=== PATIENT | female | born 1935 | race Caucasian/White ===

== ENCOUNTER 2019-01-13 09:27 | Inpatient (IN) | payer OTHER, MEDICAID ==
[~2019-01-13] VITALS: Ht 152.4 cm; Wt 70.0 kg
[2019-01-13 09:32] VITALS: Ht 152.4 cm; Wt 70.0 kg
[2019-01-13] MEDS ORDERED: SOD CHLORIDE 0.9% 1,000 ML IV STA (09:56)
[2019-01-13] MEDS ORDERED: CIPROFLOXACIN 400MG/D5W 200 ML IVPB ONE (11:30)
[2019-01-13] MEDS ORDERED: CEFTRIAXONE 1 GM/50 ML (PMX) 50 ML IVPB ONE (11:30)
[2019-01-13] MEDS ORDERED: FER325 PO (11:58)
[2019-01-13] MEDS ORDERED: TURM500C9 PO (11:58)
[2019-01-13] MEDS ORDERED: MAXZ25 PO (11:58)
[2019-01-13] MEDS ORDERED: AMLO5TAB4 PO (11:59)
[2019-01-13] MEDS ORDERED: PIOG45TA9 PO (11:59)
[2019-01-13] MEDS ORDERED: LINA1TAB PO (12:00)
[2019-01-13] MEDS ORDERED: ALEN70TA5 PO (12:00)
[2019-01-13] MEDS ORDERED: HYDR-4011 PO (12:01)
[2019-01-13] MEDS ORDERED: CALC-133 PO (12:02)
[2019-01-13] MEDS ORDERED: SODI1TAB2 PO (12:03)
[2019-01-13] MEDS ORDERED: DOCU100T PO (12:04)
[2019-01-13] MEDS ORDERED: MELO15TA30 PO (12:04)
[2019-01-13] MEDS ORDERED: HYDR28.39 RC (12:05)
[2019-01-13] MEDS ORDERED: CALC-634 PO (12:06)
--- NOTE | 2019-01-13 12:17 | ERD ---
ER Documentation Chief Complaint Chief Complaint vomiting last night, weak, slow to respond HPI 83-year-old female who presents to the emergency room with generalized weakness. History is mostly provided by the daughter. The patient over the past 24 hours has had generalized weakness. The patient had one episode of nonbloody non bilious emesis. No falls or injuries. The patient has been slower to respond, incontinent of urine. She also has bilateral lower extremity weakness that is worsening. She has known lumbar compression fractures without any evidence of new injury or falls. ROS All systems reviewed and are negative except as per history of present illness. Medications Home Meds Reported Medications Calcium Carbonate/Vitamin D3 (OYSTERCAL-D 500 MG-400 UNIT TB) 1 Each Tablet, 1 EACH PO BID, TAB 01/13/19 Hydrocortisone (PROCTOSOL-HC) 28.35 Gm Cream..g., 28.35 GM RC PRN PRN for HEMORRHOID/EPISIOTMY PAIN 01/13/19 Docusate Sodium* (Dok*) 100 Mg Tablet, 100 MG PO DAILY, #30 CAP 01/13/19 Meloxicam* (Mobic*) 15 Mg Tablet, 15 MG PO DAILY, #30 TAB 01/13/19 Sodium Chloride* (Sodium Chloride*) 1 Gm Tablet, 1 GM PO DAILY, TAB 01/13/19 Hydrocodone/Acetaminophen ([place] 5-325 Tablet) 1 Each Tablet, 1 EACH PO BID PRN for PAIN, TAB 01/13/19 Alendronate Sodium* (Fosamax*) 70 Mg Tablet, 70 MG PO EVERY MONDAY, #4 TAB 01/13/19 Linagliptin-Metformin (Jentadueto) 2.5-500 Mg Tablet, 1 TAB PO BID, TAB 01/13/19 Amlodipine Besylate* (Norvasc*) 5 Mg Tablet, 5 MG PO DAILY, TAB 01/13/19 Pioglitazone Hcl* (Actos*) 45 Mg Tablet, 45 MG PO DAILY, #30 TAB 01/13/19 Ferrous Sulfate* (Ferrous Sulfate*) 325 Mg Tabec, 325 MG PO DAILY, TAB 01/13/19 Triamterene/Hctz* (Maxzide (37.5-25)*) 1 Each Tablet, 1 EACH PO DAILY, #30 TAB 01/13/19 Turmeric Root Extract (Turmeric) 500 Mg Capsule, 500 MG PO DAILY, CAP 01/13/19 Discontinued Reported Medications Calcium Carbonate/Vitamin D3 (Oyster Shell Calcium +D Tablet) 1 Each Tablet, 1 EACH PO BID, TAB 01/13/19 Allergies Allergies: Coded Allergies: Penicillins (Verified Allergy, Unknown, 01/13/19) PMhx/Soc Hx Cardiac Disorders: Yes (htn) Hx Psychiatric Problems: No Hx Miscellaneous Medical Probl: Yes (back pain ) Hx Alcohol Use: No Hx Substance Use: No Hx Tobacco Use: No Smoking Status: Never smoker FmHx Family History: No diabetes Physical Exam Vitals Vital Signs Date Temp Pulse Resp B/P (MAP) Pulse Ox O2 O2 Flow FiO2 Time Delivery Rate 01/13/19 71 17 138/53 100 Room Air 10:55 (81) 01/13/19 97.6 77 18 124/58 100 09:32 (80) Physical Exam General: Well developed, well nourished, no acute distress Head: Normocephalic, atraumatic. Eyes: Pupils equally reactive, EOM intact ENT: Slightly dry mucous membranes Neck: Supple, no lymphadenopathy Respiratory: Lungs clear bilaterally, no distress Cardiovascular: RRR, no murmurs, rubs, or gallops Abdominal: Soft, non-tender, non-distended, no peritoneal signs : Deferred MSK: Mild generalized weakness the bilateral lower extremities, limited exam Neurologic: Patient is alert and oriented to person and place, slightly slow to respond. no focal deficits though slightly weak to the bilateral lower extremities Skin: No rash Psych: Normal mood Result Diagram: 01/13/19 1004 01/13/19 1004 Results 24 hrs Laboratory Tests Test 01/13/19 10:04 01/13/19 10:30 White Blood Count 4.0 10^3/ul Red Blood Count 3.07 10^6/ul Hemoglobin 9.9 g/dl Hematocrit 28.5 % Mean Corpuscular Volume 92.8 fl Mean Corpuscular Hemoglobin 32.2 pg Mean Corpuscular Hemoglobin Concent 34.7 g/dl Red Cell Distribution Width 13.3 % Platelet Count 266 10^3/UL Mean Platelet Volume 8.7 fl Immature Granulocytes % 0.500 % Neutrophils % 60.6 % Lymphocytes % 31.0 % Monocytes % 7.1 % Eosinophils % 0.5 % Basophils % 0.3 % Nucleated Red Blood Cells % 0.0 /100WBC Immature Granulocytes # 0.020 10^3/ul Neutrophils # 2.4 10^3/ul Lymphocytes # 1.2 10^3/ul Monocytes # 0.3 10^3/ul Eosinophils # 0.0 10^3/ul Basophils # 0.0 10^3/ul Nucleated Red Blood Cells # 0.0 10^3/ul Prothrombin Time 11.7 Sec Prothrombin Time Ratio 0.9 INR International Normalized Ratio 0.85 Activated Partial Thromboplast Time 26.3 Sec Sodium Level 132 mmol/L Potassium Level 4.0 mmol/L Chloride Level 95 mmol/L Carbon Dioxide Level 27 mmol/L Anion Gap 10 Blood Urea Nitrogen 13 mg/dl Creatinine 0.69 mg/dl Est Glomerular Filtrat Rate mL/min mL/min Glucose Level 121 mg/dl Calcium Level 10.4 mg/dl Total Bilirubin 0.4 mg/dl Direct Bilirubin 0.00 mg/dl Indirect Bilirubin 0.4 mg/dl Aspartate Amino Transf (AST/SGOT) 22 IU/L Alanine Aminotransferase (ALT/SGPT) 15 IU/L Alkaline Phosphatase 42 IU/L Troponin I < 0.012 ng/ml Total Protein 7.6 g/dl Albumin 4.5 g/dl Globulin 3.10 g/dl Albumin/Globulin Ratio 1.45 Urine Color YELLOW Urine Clarity SLIGHTLY CLOUDY Urine pH 9.0 Urine Specific [place] 1.005 Urine Ketones NEGATIVE mg/dL Urine Nitrite POSITIVE mg/dL Urine Bilirubin NEGATIVE mg/dL Urine Urobilinogen NEGATIVE mg/dL Urine Leukocyte Esterase 3+ Veto/ul Urine Microscopic RBC 4 /HPF Urine Microscopic WBC 145 /HPF Urine Squamous Epithelial Cells FEW /HPF Urine Bacteria FEW /HPF Urine Hemoglobin NEGATIVE mg/dL Urine Glucose NEGATIVE mg/dL Urine Total Protein NEGATIVE mg/dl Current Medications Medications Dose Sig/So Start Time Status Last (Trade) Ordered Route PRN Stop Time Admin Dose Reason Admin Sodium 1,000 ml @ Q1H STAT 01/13/19 DC 01/13/19 Chloride 1,000 mls/hr IV 09:56 10:54 01/13/19 10:55 Ceftriaxone 50 ml @ ONCE ONCE 01/13/19 DC Sodium 100 mls/hr IVPB 11:30 01/13/19 11:30 200 ml @ ONCE ONCE 01/13/19 01/13/19 Ciprofloxacin 200 mls/hr IVPB 11:30 11:46 / Dextrose 01/13/19 12:29 Procedures/MDM EKG, MONITORS, & DIAGNOSTIC IMAGING: EKG: I reviewed and interpreted a 12-lead EKG. Rhythm: Normal sinus rhythm ST Changes: No contiguous ST segment elevations T waves: No contiguous T wave inversions Impression: No evidence of acute cardiac ischemia CXR IMPRESSION: No evidence for active cardiopulmonary disease. Bibasilar fibrotic scarring. CT brain: IMPRESSION: No mass, hemorrhage or evidence of acute transcortical infarct. Atrophy. White matter disease compatible with chronic small vessel ischemia. Chronic infarct right occipital and posterior inferior parietal lobe with cystic encephalomalacia. Tiny chronic lacunar infarct left basal ganglia. CT A/P IMPRESSION: No evidence of urolithiasis, diverticulitis or appendicitis. Mild to moderate left hydroureter nephrosis with transition in the upper pelvis. No stones seen. Question ureteral stricture versus reflux. Distended urinary bladder. Cholelithiasis. Vascular calcifications. Acute to subacute compression fractures L1 and L4 with retropulsion and compromise of the vertebral canal as above. LAB INTERPRETATION: I reviewed the laboratory testing and it shows urinary tract infection. MEDICAL DECISION MAKING: Patient presents with generalized weakness. Differential is broad but likely consistent with possible ischemic versus infectious process. A differential will be worked up with laboratory testing and diagnostic imaging. Patient does have worsening ambulation. This seems to be more systemic rather than focal deficit. Is bilateral and not likely consistent with acute stroke syndrome. ER COURSE: * Patient has urinary tract infection which would explain the patient's generalized weakness. The patient was given ceftriaxone. Urine culture has been sent. * Patient does not meet criteria for sepsis in the emergency room setting * The patient however also has subacute lumbar compression fractures. While I have a very low clinical concern pretest probability for cauda equina the patient's incontinence and lower extremity weakness needs to be ruled out. This is more likely expand by urinary tract infection no MRI imaging would be appropriate. I discussed the case with on-call diversity specialist, Dr. Ricks. He agrees with MRI imaging of the thoracolumbar spine and will consult on the case. CONSULTATION: Neurosurgeon Dr. Ricks notified via telephone DISPOSITION PLAN: Accepting care team and consultations: I discussed the current laboratory data, diagnostic imaging and emergency care provided. Admitting team: Dr. Bautista Admitting team indication: Insurance directed Departure Diagnosis: Primary Impression: Urinary tract infection Urinary tract infection type: acute cystitis Hematuria presence: without hematuria Qualified Codes: N30.00 - Acute cystitis without hematuria Additional Impressions: Generalized weakness Lumbar compression fracture Encounter type: initial encounter Lumbar vertebra fracture level: unspecified lumbar vertebra Qualified Codes: S32.000A - Wedge compression fracture of unspecified lumbar vertebra, initial encounter for closed frac ture Dehydration, mild Condition: Stable LIBBY MAN MD Jan 13, 2019 12:17
[2019-01-13] MEDS ORDERED: ACETAMINOPHEN 325 MG TAB PO PRN ×2 (12:30→13:30)
[2019-01-13] MEDS ORDERED: ONDANSETRON 4 MG INJ IV PRN ×2 (12:30→13:30)
--- NOTE | 2019-01-13 13:10 | HP ---
Date/Time of Note Date/Time of Note DATE: 01/13/19 TIME: 13:10 Assessment/Plan VTE Prophylaxis Pharmacological prophylaxis: NA/contraindicated Pharm contraindication: other Lines/Catheters IV Catheter Type (from [facility]): Saline [facility] Assessment/Plan Hospital Course 83-year-old female with comorbidities including hypertension, diabetes mellitus type 2, stroke, lumbar vertebral fracture, and left breast cancer who presented to the emergency room with chief complaint of bilateral lower extremity weakness and new onset confusion with evidence of underlying complicated urinary tract infection, who will be admitted to inpatient setting for further treatment and evaluation. 1. Suspect complicated urinary tract infection. Obtain urine cultures. Continue the patient on ciprofloxacin (patient allergic to penicillins). 2. Left-sided hydronephrosis. Questionable stricture versus reflux. Obtain urology consult. Bladder scan every 4-6 hours. 3. New-onset bilateral lower extremity weakness. Etiology unclear. MRI of the thoracic and lumbar spine ordered. Neurosurgery consult has been obtained. 4. Hypertension. Resume antihypertensives. 5. Diabetes mellitus type 2. Continue the patient on sliding scale insulin. Obtain hemoglobin A1c to evaluate the blood glucose control over the past few weeks. 6. Normocytic, normochromic anemia. Resume iron supplements. Plan: The patient will be admitted to inpatient floor. The patient will be kept n.p.o. except for medications.. The patient will be started on DVT prophylaxis. The patient will remain a full code. Activities will be bedrest. PT evaluation will be ordered. The rest of the patient's management will be based on the clinical course, inputs from consultants, and the results of diagnostic studies. Based on the patient's clinical presentation, she most probably requires at least 2 midnights' stay for further management and evaluation of her clinical presentation. The patient was seen in collaboration with Dr. Bautista. Result Diagram: 01/13/19 1004 01/13/19 1004 Results 24hrs Laboratory Tests Test 01/13/19 10:04 01/13/19 10:30 White Blood Count 4.0 L Red Blood Count 3.07 L Hemoglobin 9.9 L Hematocrit 28.5 L Mean Corpuscular Volume 92.8 Mean Corpuscular Hemoglobin 32.2 Mean Corpuscular Hemoglobin Concent 34.7 Red Cell Distribution Width 13.3 Platelet Count 266 Mean Platelet Volume 8.7 Immature Granulocytes % 0.500 H Neutrophils % 60.6 Lymphocytes % 31.0 Monocytes % 7.1 Eosinophils % 0.5 Basophils % 0.3 Nucleated Red Blood Cells % 0.0 Immature Granulocytes # 0.020 Neutrophils # 2.4 Lymphocytes # 1.2 Monocytes # 0.3 Eosinophils # 0.0 Basophils # 0.0 Nucleated Red Blood Cells # 0.0 Prothrombin Time 11.7 L Prothrombin Time Ratio 0.9 INR International Normalized Ratio 0.85 Activated Partial Thromboplast Time 26.3 Sodium Level 132 L Potassium Level 4.0 Chloride Level 95 L Carbon Dioxide Level 27 Anion Gap 10 Blood Urea Nitrogen 13 Creatinine 0.69 Est Glomerular Filtrat Rate mL/min Glucose Level 121 Calcium Level 10.4 H Total Bilirubin 0.4 Direct Bilirubin 0.00 Indirect Bilirubin 0.4 Aspartate Amino Transf (AST/SGOT) 22 Alanine Aminotransferase (ALT/SGPT) 15 Alkaline Phosphatase 42 Troponin I < 0.012 Total Protein 7.6 Albumin 4.5 Globulin 3.10 Albumin/Globulin Ratio 1.45 Urine Color YELLOW Urine Clarity SLIGHTLY CLOUDY A Urine pH 9.0 Urine Specific [place] 1.005 Urine Ketones NEGATIVE Urine Nitrite POSITIVE A Urine Bilirubin NEGATIVE Urine Urobilinogen NEGATIVE Urine Leukocyte Esterase 3+ H Urine Microscopic RBC 4 Urine Microscopic WBC 145 H Urine Squamous Epithelial Cells FEW Urine Bacteria FEW A Urine Hemoglobin NEGATIVE Urine Glucose NEGATIVE Urine Total Protein NEGATIVE HPI/ROS Admit Date/Time Admit Date/Time Hx of Present Illness This is an 83-year-old female with a past medical history of hypertension, diabetes mellitus type 2, stroke, lumbar vertebral fracture, and left breast cancer status post resection, chemotherapy, and radiation. Patient stays at home with her daughter and is relatively independent. Since 01/12/2019, the patient started getting confused. The patient had new onset bilateral lower extremity weakness. She also had inability to hold her urine. The patient's daughter reported a fever and the patient received 1 dose of Tylenol at home. The patient started complaining of back pain and bilateral flank pain. The patient also had a few episodes of nonbilious, nonbloody vomiting. Therefore, the family brought the patient to the emergency room. In the ER, the patient was noticed to have positive urinalysis with positive nitrate and positive leukocyte esterase with urine microscopic WBC of 145. The patient underwent a CT scan of the abdomen and pelvis that was showing mild to moderate left hydroureteronephrosis with a transition in upper pelvis with a distended urinary bladder. The patient was afebrile. The patient was treated with IV fluids and IV ciprofloxacin in the ER. ROS Constitutional: disoriented Eyes: no complaints ENT: no complaints Respiratory: no complaints Cardiovascular: no complaints Gastrointestinal: pain, vomiting, other (Black stool (takes iron pills)) Genitourinary: flank pain, other (Urinary incontinence.) Musculoskeletal: back pain Skin: no complaints Neurologic: confusion, focal-weakness Endocrine: no complaints Lymphatic: no complaints Psychological: no complaints Additional Comments CT Abdomen and Pelvis IMPRESSION: No evidence of urolithiasis, diverticulitis or appendicitis. Mild to moderate left hydroureter nephrosis with transition in the upper pelvis. No stones seen. Question ureteral stricture versus reflux. Distended urinary bladder. Cholelithiasis. Vascular calcifications. Acute to subacute compression fractures L1 and L4 with retropulsion and compromise of the vertebral canal. PMH/Family/Social Past Medical History 1. Hypertension. 2. Diabetes mellitus type 2. 3. Left breast cancer status post surgical resection, chemotherapy, and radiation. 4. Lumbar vertebral fracture. 5. Stroke. Medications Current Medications Ondansetron HCl (Zofran Inj) 4 mg BRIDGE ORDER PRN IV NAUSEA/VOMITING; Start 01/13/19 at 12:30; Stop 01/14/19 at 12:29 Acetaminophen (Tylenol Tab) 650 mg ER BRIDGE PRN PO .MILD PAIN 1-3 OR TEMP; Start 01/13/19 at 12:30; Stop 01/14/19 at 12:29 Coded Allergies: Penicillins (Verified Allergy, Unknown, 01/13/19) Past Surgical History Left breast surgery for removal of tumor. Family History Significant Family History: cancer, diabetes Social History Lives at home with family. Uses a walker for ambulation. Alcohol Use: none Smoking Status: Never smoker Drug Use: none Exam/Review of Systems Vital Signs Vitals Vital Signs Date Temp Pulse Resp B/P (MAP) Pulse Ox O2 O2 Flow FiO2 Time Delivery Rate 01/13/19 71 17 138/53 100 Room Air 10:55 (81) 01/13/19 97.6 09:32 Exam Exam General: Adequately build 83 year-old female lying in bed in no apparent distress. HEENT: Normocephalic, atraumatic. Eyes: Anicteric sclerae, conjunctivae clear. ENT: Nasal septum midline, oral mucosa is dry. Neck supple. Respiratory: Bilaterally diminished breath sounds. No use of accessory muscles of respiration. No adventitious breath sounds. Cardiovascular: S1, S2 heard. Regular rate and rhythm. Abdomen: Soft, nontender, and nondistended. Bowel sounds positive in all 4 quadrants. Genitourinary: Deferred. Extremities: No cyanosis, no clubbing, no edema. Peripheral pulses palpable. Neurologic: The patient is awake and alert. B/L LE weak when compared to the upper extremities. Skin: Normal skin turgor. No skin rashes. Additional Comments Brain CT IMPRESSION: No mass, hemorrhage or evidence of acute transcortical infarct. Atrophy. White matter disease compatible with chronic small vessel ischemia. Chronic infarct right occipital and posterior inferior parietal lobe with cystic encephalomalacia. Tiny chronic lacunar infarct left basal ganglia. CT Abdomen and Pelvis IMPRESSION: No evidence of urolithiasis, diverticulitis or appendicitis. Mild to moderate left hydroureter nephrosis with transition in the upper pelvis. No stones seen. Question ureteral stricture versus reflux. Distended urinary bladder. Cholelithiasis. Vascular calcifications. Acute to subacute compression fractures L1 and L4 with retropulsion and compromise of the vertebral canal. ADAM BLANCO NP Jan 13, 2019 13:10
[2019-01-13] MEDS ORDERED: SOD CHLORIDE 0.9% 1,000 ML IV SCH (13:26)
[2019-01-13] MEDS ORDERED: NACL 0.9% 3 ML SYG IV SCH (13:30)
[2019-01-13] MEDS ORDERED: HYDROCODONE/APAP (5/325) TAB PO PRN (13:30)
[2019-01-13] MEDS ORDERED: INSULIN ASPART [NOVOLOG] 3 ML PEN SC SCH (14:00)
[2019-01-13] MEDS ORDERED: GLUCOSE GEL 15 GRAM TUBE BUCCAL PRN (14:30)
[2019-01-13] MEDS ORDERED: GLUCOSE GEL 15 GRAM TUBE PO PRN ×2 (14:30)
[2019-01-13] MEDS ORDERED: DEXTROSE 50% 50 ML SYRINGE IV PRN ×2 (14:30)
[2019-01-13] MEDS ORDERED: GLUCAGON 1 MG INJ IM PRN (14:30)
[2019-01-13 16:37] VITALS: BP 158/72; PULSE 74; RESP 17
[2019-01-13] MEDS: Insulin NOVOLOG SS MILD Algorithm (NPO/TPN/ENTERAL FEEDS) SC SCH ×2 (17:00→20:45)
--- NOTE | 2019-01-13 19:29 | CONS ---
Assessment/Plan Assessment/Plan Hospital Course (Demo Recall) 83-year-old female presented to the emergency room with a history of weakness in both lower extremities and the patient was getting confused at home the past 2 days. Patient lives at home with her daughter and has been recently seeing her medical doctor for back pain and she was told that she does have osteoporosis and lumbar fracture which according to her daughter has been healing. However the patient was having more weakness in her lower extremities and also having more back pain and urinary incontinence. She has been wearing a diaper and according to her daughters when she is nervous she tries to hold her urine. Upon admission the patient underwent a CT scan of the abdomen and pelvis and that showed: No evidence of urolithiasis, diverticulitis or appendicitis. Mild to moderate left hydroureter nephrosis with transition in the upper pelvis. No stones seen. Question ureteral stricture versus reflux. Distended urinary bladder. Cholelithiasis. Vascular calcifications. Acute to subacute compression fractures L1 and L4 with retropulsion and compromise of the vertebral canal as above. Patient also had an MRI of the lumbar and thoracic spine and these did show: MRI of the lumbosacral spine: 1. The L1 compression fracture shows a signal pattern suggesting acute pathology with bone retropulsion causing severe central canal stenosis and impingement upon the proximal cauda equina at the junction with the conus, findings likely correlate with the provided clinical history. 2. The L4 compression deformity is chronic in signal pattern with mild bone retropulsion causing moderate central canal stenosis at the level of the superior endplate. 3. Severe acquired central canal stenosis at L4-5 caused by osteophyte and disc complex, facet arthropathy and ligamentum flavum hypertrophy. 4. Mild L5-S1 central canal stenosis caused by osteophyte and disc complex, facet arthropathy and ligamentum flavum hypertrophy. MRI of the thoracic spine: 1. The thoracic spinal cord signal is within normal limits and there is no significant central canal stenosis at any thoracic level. 2. There is degenerative disc narrowing with osteophyte and disc complexes at multiple thoracic levels as discussed above without significant central canal or foraminal compromise, no cord compression at the thoracic levels is present After her admission the patient was not urinating and the nurse did the bladder scan on her and that showed over 999 mL. I saw the patient around the same time and indeed her bladder was distended up to the umbilicus but yet the patient was not in severe pain. I did proceed and inserted a Mena catheter for her and over 2300 mL of urine drained out. The urine was clear. Impression: Urinary retention and atonic bladder most likely related to her back problems and also diabetes. Plan: Keep the Mena catheter overnight and discontinue it in the morning and do in and out cath on her every 6 hours. And also we will teach her daughter to do straight cath for her at home every 12 hours. The daughter is willing to do that and wants to learn how to do it. As far as her back would recommend to have orthopedic or neurosurgery consultation. The patient also looks jaundiced but her bilirubin is normal. Consider GI consultation. Consultation Date/Type/Reason Admit Date/Time January 13, 2019 Date of Consultation: Jan 13, 2019 Type of Consult Urology Reason for Consultation Urinary retention Requesting Provider: DREA OSBORNE MD Date/Time of Note DATE: 01/13/19 TIME: 19:08 Hx of Present Illness 83-year-old female presented to the emergency room with a history of weakness in both lower extremities and the patient was getting confused at home the past 2 days. Patient lives at home with her daughter and has been recently seeing her medical doctor for back pain and she was told that she does have osteoporosis and lumbar fracture which according to her daughter has been healing. However the patient was having more weakness in her lower extremities and also having more back pain and urinary incontinence. She has been wearing a diaper and according to her daughters when she is nervous she tries to hold her urine. Upon admission the patient underwent a CT scan of the abdomen and pelvis and that showed: No evidence of urolithiasis, diverticulitis or appendicitis. Mild to moderate left hydroureter nephrosis with transition in the upper pelvis. No stones seen. Question ureteral stricture versus reflux. Distended urinary bladder. Cholelithiasis. Vascular calcifications. Acute to subacute compression fractures L1 and L4 with retropulsion and compromise of the vertebral canal as above. After her admission the patient was not urinating and the nurse did the bladder scan on her and that showed over 999 mL. I saw the patient around the same time and indeed her bladder was distended up to the umbilicus but yet the patient was not in severe pain. I did proceed and inserted a Mena catheter for her and over 2300 mL of urine drained out. The urine was clear. Constitutional: no complaints Eyes: no complaints, other ENT: no complaints Respiratory: No shortness of breath Cardiovascular: No chest pain Gastrointestinal: nausea, vomiting (At the time of admission) Genitourinary: other (At home she does wear a diaper [id number] but she does go to the bathroom and it seems she does have mostly incontinence especially when she stands up which indicates overflow incontinence.) Musculoskeletal: back pain, other (Weakness in both lower extremities) Skin: no complaints Neurologic: focal-weakness (Lower extremities), other (History of stroke 20 years ago) Endocrine: other (History of diabetes) Additional Comments Patient does have a history of breast cancer Past Medical History Medical History: cancer (Left breast), diabetes, hypertension, other (Osteoporosis) Home Meds Reported Medications Calcium Carbonate/Vitamin D3 (OYSTERCAL-D 500 MG-400 UNIT TB) 1 Each Tablet, 1 EACH PO BID, TAB 01/13/19 Hydrocortisone (PROCTOSOL-HC) 28.35 Gm Cream..g., 28.35 GM RC PRN PRN for HEMORRHOID/EPISIOTMY PAIN 01/13/19 Docusate Sodium* (Dok*) 100 Mg Tablet, 100 MG PO DAILY, #30 CAP 01/13/19 Meloxicam* (Mobic*) 15 Mg Tablet, 15 MG PO DAILY, #30 TAB 01/13/19 Sodium Chloride* (Sodium Chloride*) 1 Gm Tablet, 1 GM PO DAILY, TAB 01/13/19 Hydrocodone/Acetaminophen ([place] 5-325 Tablet) 1 Each Tablet, 1 EACH PO BID PRN for PAIN, TAB 01/13/19 Alendronate Sodium* (Fosamax*) 70 Mg Tablet, 70 MG PO EVERY MONDAY, #4 TAB 01/13/19 Linagliptin-Metformin (Jentadueto) 2.5-500 Mg Tablet, 1 TAB PO BID, TAB 01/13/19 Amlodipine Besylate* (Norvasc*) 5 Mg Tablet, 5 MG PO DAILY, TAB 01/13/19 Pioglitazone Hcl* (Actos*) 45 Mg Tablet, 45 MG PO DAILY, #30 TAB 01/13/19 Ferrous Sulfate* (Ferrous Sulfate*) 325 Mg Tabec, 325 MG PO DAILY, TAB 01/13/19 Triamterene/Hctz* (Maxzide (37.5-25)*) 1 Each Tablet, 1 EACH PO DAILY, #30 TAB 01/13/19 Turmeric Root Extract (Turmeric) 500 Mg Capsule, 500 MG PO DAILY, CAP 01/13/19 Discontinued Reported Medications Calcium Carbonate/Vitamin D3 (Oyster Shell Calcium +D Tablet) 1 Each Tablet, 1 EACH PO BID, TAB 01/13/19 Medications Current Medications Ondansetron HCl (Zofran Inj) 4 mg BRIDGE ORDER PRN IV NAUSEA/VOMITING; Start 01/13/19 at 12:30; Stop 01/14/19 at 12:29 Acetaminophen (Tylenol Tab) 650 mg ER BRIDGE PRN PO .MILD PAIN 1-3 OR TEMP; Start 01/13/19 at 12:30; Stop 01/14/19 at 12:29 Sodium Chloride 1,000 ml @ 100 mls/hr Q10H IV Last administered on 01/13/19at 17:59; Admin Dose 100 MLS/HR; Start 01/13/19 at 13:26; Stop 01/13/19 at 23:25 IV Flush (NS 3 ml) 3 ml PER PROTOCOL IV ; Start 01/13/19 at 13:30 Ondansetron HCl (Zofran Inj) 4 mg Q6H PRN IV NAUSEA/VOMITING; Start 01/13/19 at 13:30 Acetaminophen (Tylenol Tab) 650 mg Q6H PRN PO .PAIN 1-3 OR TEMP; Start 01/13/19 at 13:30 Acetaminophen/ Hydrocodone Bitart ([place] (5/325)) 1 tab Q6H PRN PO .MOD PAIN 4- 6; Start 01/13/19 at 13:30 Ciprofloxacin/ Dextrose 200 ml @ 200 mls/hr Q12 IVPB ; Start 01/13/19 at 21:00 Amlodipine Besylate (Norvasc) 5 mg DAILY PO ; Start 01/14/19 at 09:00 Ferrous Sulfate (Ferrous Sulfate (Ec)) 325 mg DAILY PO ; Start 01/14/19 at 09:00 Insulin Aspart (Novolog Insulin Pen) (Adult SC Insulin - Mild Algorithm)... Q4 SC ; Start 01/13/19 at 17:00 Miscellaneous Information 1 ea NOTE XX ; Start 01/13/19 at 14:30 Glucose (Glutose) 15 gm Q15M PRN PO DECREASED GLUCOSE; Start 01/13/19 at 14:30 Glucose (Glutose) 22.5 gm Q15M PRN PO DECREASED GLUCOSE; Start 01/13/19 at 14:30 Dextrose (D50w Syringe) 25 ml Q15M PRN IV DECREASED GLUCOSE; Start 01/13/19 at 14:30 Dextrose (D50w Syringe) 50 ml Q15M PRN IV DECREASED GLUCOSE; Start 01/13/19 at 14:30 Glucagon (Glucagen) 1 mg Q15M PRN IM DECREASED GLUCOSE; Start 01/13/19 at 14:30 Glucose (Glutose) 15 gm Q15M PRN BUCCAL DECREASED GLUCOSE; Start 01/13/19 at 1 4:30 Allergies: Coded Allergies: Penicillins (Verified Allergy, Unknown, 01/13/19) Past Surgical History Past Surgical Hx: other (Left breast surgery and chemoradiation, umbilical hernia repair) Social History Alcohol Use: none Smoking Status: Never smoker Drug Use: none Other Social History She is a 5, para 5, all normal delivery Exam/Review of Systems Exam Vitals Vital Signs Date Temp Pulse Resp B/P (MAP) Pulse Ox O2 O2 Flow FiO2 Time Delivery Rate 01/13/19 98.4 74 17 158/72 99 Room Air 16:37 (100) Constitutional: alert Psych: no complaints Head: normocephalic Eyes: icteric ENMT: nl external ears & nose Neck: supple, non-tender Respiratory: normal air movement; No wheezing Cardiovascular: No jugular venous distention (JVD) Gastrointestinal: soft, tender (In the suprapubic area) Genitourinary - Female: other (Atrophic vaginitis and distended urinary bladder.) Musculoskeletal: muscle weakness (Lower extremities) Extremities: No calf tenderness Neurological: focal weakness (Lower extremities) Skin: nl turgor Results Result Diagram: 01/13/19 1004 01/13/19 1004 Results 24hrs Laboratory Tests Test 01/13/19 10:04 01/13/19 10:30 01/13/19 17:58 White Blood Count 4.0 L Red Blood Count 3.07 L Hemoglobin 9.9 L Hematocrit 28.5 L Mean Corpuscular Volume 92.8 Mean Corpuscular Hemoglobin 32.2 Mean Corpuscular 34.7 Hemoglobin Concent Red Cell Distribution Width 13.3 Platelet Count 266 Mean Platelet Volume 8.7 Immature Granulocytes % 0.500 H Neutrophils % 60.6 Lymphocytes % 31.0 Monocytes % 7.1 Eosinophils % 0.5 Basophils % 0.3 Nucleated Red Blood Cells % 0.0 Immature Granulocytes # 0.020 Neutrophils # 2.4 Lymphocytes # 1.2 Monocytes # 0.3 Eosinophils # 0.0 Basophils # 0.0 Nucleated Red Blood Cells # 0.0 Prothrombin Time 11.7 L Prothrombin Time Ratio 0.9 INR International 0.85 Normalized Ratio Activated Partial Thromboplast 26.3 Time Sodium Level 132 L Potassium Level 4.0 Chloride Level 95 L Carbon Dioxide Level 27 Anion Gap 10 Blood Urea Nitrogen 13 Creatinine 0.69 Est Glomerular Filtrat Rate mL/min Glucose Level 121 Hemoglobin A1c 5.2 Calcium Level 10.4 H Total Bilirubin 0.4 Direct Bilirubin 0.00 Indirect Bilirubin 0.4 Aspartate Amino 22 Transf (AST/SGOT) Alanine 15 Aminotransferase (ALT/SGPT) Alkaline Phosphatase 42 Troponin I < 0.012 Total Protein 7.6 Albumin 4.5 Globulin 3.10 Albumin/Globulin Ratio 1.45 Thyroid Stimulating 4.650 Hormone (TSH) Free Thyroxine 1.38 Urine Color YELLOW Urine Clarity SLIGHTLY CLOUDY A Urine pH 9.0 Urine Specific [place] 1.005 Urine Ketones NEGATIVE Urine Nitrite POSITIVE A Urine Bilirubin NEGATIVE Urine Urobilinogen NEGATIVE Urine Leukocyte Esterase 3+ H Urine Microscopic RBC 4 Urine Microscopic WBC 145 H Urine Squamous FEW Epithelial Cells Urine Bacteria FEW A Urine Hemoglobin NEGATIVE Urine Glucose NEGATIVE Urine Total Protein NEGATIVE Bedside Glucose [address] scan of the abdomen and pelvis: No evidence of urolithiasis, diverticulitis or appendicitis. Mild to moderate left hydroureter nephrosis with transition in the upper pelvis. No stones seen. Question ureteral stricture versus reflux. Distended urinary bladder. Cholelithiasis. Vascular calcifications. Acute to subacute compression fractures L1 and L4 with retropulsion and compromise of the vertebral canal as above MRI of the lumbosacral spine: 1. The L1 compression fracture shows a signal pattern suggesting acute pathology with bone retropulsion causing severe central canal stenosis and impingement upon the proximal cauda equina at the junction with the conus, findings likely correlate with the provided clinical history. 2. The L4 compression deformity is chronic in signal pattern with mild bone retropulsion causing moderate central canal stenosis at the level of the superior endplate. 3. Severe acquired central canal stenosis at L4-5 caused by osteophyte and disc complex, facet arthropathy and ligamentum flavum hypertrophy. 4. Mild L5-S1 central canal stenosis caused by osteophyte and disc complex, facet arthropathy and ligamentum flavum hypertrophy. MRI of the thoracic spine: 1. The thoracic spinal cord signal is within normal limits and there is no significant central canal stenosis at any thoracic level. 2. There is degenerative disc narrowing with osteophyte and disc complexes at multiple thoracic levels as discussed above without significant central canal or foraminal compromise, no cord compression at the thoracic levels is present Medications Medication Current Medications Ondansetron HCl (Zofran Inj) 4 mg BRIDGE ORDER PRN IV NAUSEA/VOMITING; Start 01/13/19 at 12:30; Stop 01/14/19 at 12:29 Acetaminophen (Tylenol Tab) 650 mg ER BRIDGE PRN PO .MILD PAIN 1-3 OR TEMP; Start 01/13/19 at 12:30; Stop 01/14/19 at 12:29 Sodium Chloride 1,000 ml @ 100 mls/hr Q10H IV Last administered on 01/13/19at 17:59; Admin Dose 100 MLS/HR; Start 01/13/19 at 13:26; Stop 01/13/19 at 23:25 IV Flush (NS 3 ml) 3 ml PER PROTOCOL IV ; Start 01/13/19 at 13:30 Ondansetron HCl (Zofran Inj) 4 mg Q6H PRN IV NAUSEA/VOMITING; Start 01/13/19 at 13:30 Acetaminophen (Tylenol Tab) 650 mg Q6H PRN PO .PAIN 1-3 OR TEMP; Start 01/13/19 at 13:30 Acetaminophen/ Hydrocodone Bitart ([place] (5/325)) 1 tab Q6H PRN PO .MOD PAIN 4- 6; Start 01/13/19 at 13:30 Ciprofloxacin/ Dextrose 200 ml @ 200 mls/hr Q12 IVPB ; Start 01/13/19 at 21:00 Amlodipine Besylate (Norvasc) 5 mg DAILY PO ; Start 01/14/19 at 09:00 Ferrous Sulfate (Ferrous Sulfate (Ec)) 325 mg DAILY PO ; Start 01/14/19 at 09:00 Insulin Aspart (Novolog Insulin Pen) (Adult SC Insulin - Mild Algorithm)... Q4 SC ; Start 01/13/19 at 17:00 Miscellaneous Information 1 ea NOTE XX ; Start 01/13/19 at 14:30 Glucose (Glutose) 15 gm Q15M PRN PO DECREASED GLUCOSE; Start 01/13/19 at 14:30 Glucose (Glutose) 22.5 gm Q15M PRN PO DECREASED GLUCOSE; Start 01/13/19 at 14:30 Dextrose (D50w Syringe) 25 ml Q15M PRN IV DECREASED GLUCOSE; Start 01/13/19 at 14:30 Dextrose (D50w Syringe) 50 ml Q15M PRN IV DECREASED GLUCOSE; Start 01/13/19 at 14:30 Glucagon (Glucagen) 1 mg Q15M PRN IM DECREASED GLUCOSE; Start 01/13/19 at 14:30 Glucose (Glutose) 15 gm Q15M PRN BUCCAL DECREASED GLUCOSE; Start 01/13/19 at 14:30 KI VELÁSQUEZ MD Jan 13, 2019 19:18
[2019-01-13 19:50] VITALS: BP 130/58; PULSE 75; RESP 18
[2019-01-13] MEDS: CIPROFLOXACIN 400MG/D5W 200 ML IVPB SCH (20:44)
--- NOTE | 2019-01-13 22:55 | CONS ---
Assessment/Plan Assessment/Plan Assessment/Plan (Daily) Date of consultation: 01/13/2019 Requesting physician: Dr. Smart with the emergency department Consulting service: Neurosurgery This is a 83-year-old female who was diagnosed with 2 spontaneous lumbar fractures 8 months ago and evaluated by a neurosurgeon at [facility]. Apparently, initially there were some discussions made about possible kyphoplasty but as the patient's daughters recall there was some issues with the equipment and the procedure was not done. The patient was instead put in a brace and transferred to a senior care facility. After further questioning, the daughters tell me that the patient has also had bilateral foot drops soon after the fractures were diagnosed. The patient had further follow-up with the same neurosurgeon in a clinic setting with the last clinic visit being last month and told to continue with conservative management. Since the fracture diagnosis, the patient has continued to deteriorate neurologically in a progressive fashion. She has been virtually nonambulatory for the past 2 months where she uses a wheelchair at times at home and at other times with maximum assistance, can take a few steps using a front wheel walker only. The patient has been using a diaper for at least the past 2 months due to multiple "accidents" where she wet herself. For the past 2 weeks, the patient has had multiple episodes where she has a sudden gush of urine that leaves her bladder. She can void spontaneously but with significant hesitation, slow rate of flow and difficulty. She does not feel that her bladder is full. During the last visit that took place last month with the other neurosurgeon, there were no discussions made about possible need for neurosurgical intervention. The patient was brought to [facility] emergency room today due to further progressive paraparesis and bladder incontinence by her 2 daughters. The patient has really been evaluated in urology and when a Mena catheter was put in, 2300 mL of urine was removed from the patient's very distended bladder according to her nurse with whom I just spoke. The patient has also been diagnosed with a UTI and hydronephrosis upon admission to the hospital. The patient's daughter tell me, that the patient has had recurrent UTIs. Ever since the diagnosis of the lumbar fractures, the patient has also had continued low back pain and takes various pain medications including Fisher on a when necessary basis. The physical therapy that she has gotten has not been helpful to her. Prior to the diagnosis of her lumbar fractures, the patient has been a functional and able to take care of her activities of daily living. The patient and her live with 1 of her daughters. However, since the diagnosis of the lumbar fractures the patient has become progressively more deconditioned. Over the past week or so, the patient has become somewhat somnolent and her level of consciousness has diminished for unknown reasons. It is unclear whether the patient has been taking any medications for treatment of osteoporosis. Past medical history: Breast cancer (diagnosed and treated over 10 years status post resection, chemotherapy and radiation), hypertension, diabetes, "stroke" over 10 years ago Allergies: Penicillin Review of systems: The patient and her family deny shortness of breath, chest pain, heartburn, diplopia, blurriness of the vision. Please see above for pertinent positives or negatives. Family history: Noncontributory Social history: Denies use of tobacco, EtOH, illicit or recreational drugs. Physical examination: This is a elderly female laying in bad somewhat somnolent. She appears to be comfortable. Her two daughters are at bedside. Patient is awake alert and oriented to person, the year and month and place. The patient is Citizen Of [place]-speaking only but I am able to communicate with her with the help of her 2 daughters. Her language is slow. Face is symmetric. Extraocular movements are grossly normal. Shoulder shrugs are symmetric. Muscle bulk is somewhat decreased bilateral upper and lower extremities. Muscle tone is increased bilateral lower extremities when compared to the upper extremities. Deep tendon reflexes are 1+ bilateral upper extremities and 2+ bilateral lower extremities. Sensory testing is difficult but the patient but she seems to have at least some sensation in bilateral lower extremities proximally and distally. There is at least some sensation to light touch present in the perineal area. Motor strength is 4+ out of 5 bilateral upper extremities proximally and distally. Motor strength bilateral lower extremities including hip flexion, knee flexion and extension and ankle plantar flexion are at least 3 out of 5. Bilateral ankle dorsiflexion is 2- out of 5. There is no Paulo sign present bilaterally. Cerebellar testing is difficult due to the patient being somnolent. Toe testing is equivocal. There is no ankle clonus. Straight leg raise more than 20 on either side causes axial low back pain. Rectal tone examination has been deferred per patient request. Gait testing can be done as the patient has been virtually nonambulatory for 2 months. CERVICAL SPINE: Examination of the cervical spine reveals no significant tenderness. CERVICAL SPINE ACTIVE RANGE OF MOTION: Patient ROM Normal ROM Cervical flexion: 30 50 Cervical extension: 40 60 Cervical lateral rotation to the left: 60 80 Cervical lateral rotation to the right: 60 80 THORACIC SPINE: Examination of the thoracic spine reveals some tenderness at the thoracolumbar region. LUMBOSACRAL SPINE: Examination of the lumbar spine reveals moderate tenderness throughout the lumbar spine at midline or over the paraspinal regions bilaterally. LUMBOSACRAL SPINE ACTIVE RANGE OF MOTION: Cannot be done as the patient has been virtually nonambulatory and has difficulty standing. Imaging: CT abdomen and pelvis without contrast: The sagittal views reveal more than 75% L1 burst fracture and more than 50% L4 wedge compression fracture. The L1 burst fracture causes at least moderate canal stenosis. The patient's normal lumbar lordosis seems to be preserved. There is no significant evidence of subluxation. MRI of thoracic and lumbar spine without contrast: Normal thoracic kyphosis is well preserved without any evidence of a fracture or subluxation. There is no thoracic stenosis noted. The axial T2 images are suboptimal likely related to motion artifact. However, it appears that the burst fracture at L1 is acute/subacute on chronic based on the T2 hyperintensity on STIR images. This causes at least moderatesevere central canal stenosis and compression at the junction of conus medullaris and cauda equina. The L4 compression fracture causes at least moderate central and lateral recess stenosis. Assessment/plan: I have spent over one hour discussing the patient's clinical findings including her CT and MR imaging studies as well as examination and diagnosis. Unfortunately the patient's neurologic deficit has been progressive over the past 7-8 months including bilateral foot drops, gait imbalance, significant paraparesis and urinary retention and incontinence that is likely related to overflow incontinence. The patient's paraparesis has been present for at least the past 2 months making the patient virtually nonambulatory. Her bladder incontinence has been present also at least for the past month or 2 with further worsening over the past 2 weeks. I have further explained to the patient and her daughters that the patient's current clinical situation, L1 burst fracture and L4 wedge compression fracture likely related to osteoporosis is a rather serious condition. The patient's options at this point include continued observation, more physical therapy versus neurosurgical intervention that in this case would include surgical decompression and stabilization. Given the fact that the patient's symptoms have been present for months, even with neurosurgical intervention, it is possible that the patient's dense para paresis and bladder dysfunction may not improve. It is also possible that the patient's sensory motor function may worsen with surgical intervention. Given the patient's presumed significant osteoporosis accounting for the fractures in the first place, if the patient is to undergo surgical intervention, she would need multilevel instrumented fusion above and below the fractures to maximize the points of fixation. The operation would likely be L1 Far lateral approach/lateral extra cavitary approach for partial L1 corpectomy and decompression, L4-5 laminectomy medial facetectomy and foraminotomy, T9/T10-S1 posterior instrumented fusion, use of morcellized local autologous and allo bone graft/synthetics. I have also discussed the risks and benefits of of the above operation in great detail with the patient and her 2 daughters with the risks including bleeding, infection, weakness, numbness, paralysis, bowel or bladder dysfunction, cerebrospinal fluid leak, injury to the adjacent tissue, failure of improvement of symptoms or worsening of symptoms, need for further surgeries including revision or extension of the instrumented fusion and decompression as well as those risks associated with surgery and general anesthesia including deep venous thrombosis, pulmonary embolism, pneumonia, heart attack, stroke, and . Given the patient's suspected advanced osteoporosis, she is at high risk for pseudoarthrosis and hardware failure and may necessitate further revisions and surgeries. The patient will also require extensive postoperative neuro rehabilitation including aggressive physical therapy. Given the patient's baseline paraparesis, she would most likely require inpatient rehab therapy postoperatively. The patient may still require permanent bladder cathete rization even with the above surgery as her current bladder dysfunction may already have become irreversible. However, without any neurosurgical intervention, given the patient's progressive neurologic decline, it is likely that the patient will develop paraplegia. The patient and her daughters fully understand the above discussion. They also realize that this type of operation is a major surgery and even more difficult in terms of recovery for an elderly rather deconditioned patient such as their mother. Should they decide to proceed with the above operation, the patient will require preoperative cardiac clearance as well as medical clearance. If they do end up deciding to proceed with neurosurgical intervention, I would recommend doing the surgery over the next several days rather than the next several weeks as the longer that they wait, the less the chance of further recov magali. The patient and her daughters fully understand the above discussion and will get back to me with their decision. FREDERICK CODY MD Jan 13, 2019 22:55
[2019-01-14] MEDS: Insulin NOVOLOG SS MILD Algorithm (NPO/TPN/ENTERAL FEEDS) SC SCH ×6 (01:00→21:00)
[2019-01-14 02:00] VITALS: BP 109/52; PULSE 80; RESP 18
[2019-01-14 07:34] VITALS: BP 125/57; PULSE 78; RESP 19
[2019-01-14] MEDS: FERROUS SULFATE (EC) 325 MG TAB PO SCH (08:29)
[2019-01-14] MEDS: CIPROFLOXACIN 400MG/D5W 200 ML IVPB SCH ×2 (08:30→21:04)
[2019-01-14] MEDS: AMLODIPINE 5 MG TAB PO SCH (08:30)
[2019-01-14] MEDS ORDERED: POTASSIUM CHLORIDE (SR) 20 MEQ TAB PO STA (09:49)
--- NOTE | 2019-01-14 09:51 | PN ---
Date/Time of Note Date/Time of Note DATE: 01/14/19 TIME: 09:50 Assessment/Plan VTE Prophylaxis Risk score (from Ns)>0 risk: 7 SCD applied (from [facility]): No SCD contraindicated: other Pharmacological prophylaxis: LMWH Lines/Catheters IV Catheter Type (from [facility]): Saline Lock Urinary Cath still in place: Yes Reason Cath still needed: urinary retention Assessment/Plan Hospital Course SUBJECTIVE: Low back pain well controlled. OBJECTIVE: Physical Exam General: Adequately build 83 year-old female lying in bed in no apparent distress. HEENT: Normocephalic, atraumatic. Eyes: Anicteric sclerae, conjunctivae clear. ENT: Nasal septum midline, oral mucosa is dry. Neck supple. Respiratory: Bilaterally diminished breath sounds. No use of accessory muscles of respiration. No adventitious breath sounds. Cardiovascular: S1, S2 heard. Regular rate and rhythm. Abdomen: Soft, nontender, and nondistended. Bowel sounds positive in all 4 quadrants. Genitourinary: Deferred. Extremities: No cyanosis, no clubbing, no edema. Peripheral pulses palpable. Neurologic: The patient is awake and alert. B/L LE weak when compared to the up per extremities. Skin: Normal skin turgor. No skin rashes. Labs & Vitals per chart ASSESSMENT & PLAN 83-year-old female with comorbidities including hypertension, diabetes mellitus type 2, stroke, lumbar vertebral fracture, and left breast cancer who presented to the emergency room with chief complaint of bilateral lower extremity weakness and new onset confusion with evidence of underlying complicated urinary tract infection, who will be admitted to inpatient setting for further treatment and evaluation. 1. Suspect complicated urinary tract infection. Pending urine cultures. Continue the patient on ciprofloxacin (patient allergic to penicillins). 2. Urinary retention with atonic bladder. Etiology could be secondary to underlying spinal problem. Being followed by urology. Status post Mena catheter placement on 01/13/2019. 4. 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 Continue pain control. Being followed by neurosurgery. 5. Hypertension. Continue antihypertensives. 6. Diabetes mellitus type 2. Continue the patient on sliding scale insulin. Hemoglobin A1C 5.2. 7. Normocytic, normochromic anemia. Continue iron supplements. 8. My fluids Carbohydrate controlled diet. 9. DVT prophylaxis. Bilateral SCDs. SQ Lovenox. 10. Plan. Continue empiric antimicrobials. Await final urine cultures. Family deciding on whether to proceed with surgical intervention recommended by the neurosurgeon. If family wants to do surgical intervention, will obtain cardiology clearance. The patient was seen in collaboration with Dr. Anglin. Result Diagram: 01/14/19 0438 01/14/19 0438 Results 24hrs Laboratory Tests Test 01/13/19 10:04 01/13/19 10:30 01/13/19 17:58 01/13/19 20:45 White Blood Count 4.0 L Red Blood Count 3.07 L Hemoglobin 9.9 L Hematocrit 28.5 L Mean Corpuscular 92.8 Volume Mean Corpuscular 32.2 Hemoglobin Mean Corpuscular 34.7 Hemoglobin Concen t Red Cell 13.3 Distribution Width Platelet Count 266 Mean Platelet 8.7 Volume Immature 0.500 H Granulocytes % Neutrophils % 60.6 Lymphocytes % 31.0 Monocytes % 7.1 Eosinophils % 0.5 Basophils % 0.3 Nucleated Red 0.0 Blood Cells % Immature 0.020 Granulocytes # Neutrophils # 2.4 Lymphocytes # 1.2 Monocytes # 0.3 Eosinophils # 0.0 Basophils # 0.0 Nucleated Red 0.0 Blood Cells # Prothrombin Time 11.7 L Prothrombin Time 0.9 Ratio INR International 0.85 Normalized Ratio Activated 26.3 Partial Thrombopl ast Time Sodium Level 132 L Potassium Level 4.0 Chloride Level 95 L Carbon Dioxide 27 Level Anion Gap 10 Blood Urea 13 Nitrogen Creatinine 0.69 Est Glomerular Filtrat Rate mL/min Glucose Level 121 Hemoglobin A1c 5.2 Calcium Level 10.4 H Total Bilirubin 0.4 Direct Bilirubin 0.00 Indirect 0.4 Bilirubin Aspartate Amino 22 Transf (AST/SGOT) Alanine 15 Aminotransferase (ALT/SGPT) Alkaline 42 Phosphatase Troponin I < 0.012 Total Protein 7.6 Albumin 4.5 Globulin 3.10 Albumin/Globulin 1.45 Ratio Thyroid 4.650 Stimulating Hormone (TSH) Free Thyroxine 1.38 Urine Color YELLOW Urine Clarity SLIGHTLY CLOUDY A Urine pH 9.0 Urine Specific 1.005 [place] Urine Ketones NEGATIVE Urine Nitrite POSITIVE A Urine Bilirubin NEGATIVE Urine NEGATIVE Urobilinogen Urine Leukocyte 3+ H Esterase Urine Microscopic 4 RBC Urine Microscopic 145 H WBC Urine Squamous FEW Epithelial Cells Urine Bacteria FEW A Urine Hemoglobin NEGATIVE Urine Glucose NEGATIVE Urine Total NEGATIVE Protein Bedside Glucose 100 102 Test 01/14/19 01:30 01/14/19 04:38 01/14/19 05:50 01/14/19 08:00 Bedside Glucose 101 93 95 White Blood Count 4.5 L Red Blood Count 2.54 L Hemoglobin 8.2 L Hematocrit 23.5 L Mean Corpuscular 92.5 Volume Mean Corpuscular 32.3 Hemoglobin Mean Corpuscular 34.9 Hemoglobin Concen t Red Cell 13.5 Distribution Width Platelet Count 249 Mean Platelet 9.5 Volume Immature 0.200 Granulocytes % Neutrophils % 65.5 Lymphocytes % 26.3 Monocytes % 7.6 Eosinophils % 0.2 Basophils % 0.2 Nucleated Red 0.0 Blood Cells % Immature 0.010 Granulocytes # Neutrophils # 2.9 Lymphocytes # 1.2 Monocytes # 0.3 Eosinophils # 0.0 Basophils # 0.0 Nucleated Red 0.0 Blood Cells # Sodium Level 134 L Potassium Level 3.4 L Chloride Level 105 # Carbon Dioxide 21 Level Anion Gap 8 Blood Urea 8 Nitrogen Creatinine 0.59 Est Glomerular Filtrat Rate mL/min Glucose Level 83 Calcium Level 8.8 Phosphorus Level 3.5 Magnesium Level 1.8 Total Bilirubin 0.3 Direct Bilirubin 0.00 Indirect 0.3 Bilirubin Aspartate Amino 18 Transf (AST/SGOT) Alanine 14 Aminotransferase (ALT/SGPT) Alkaline 31 L Phosphatase Total Protein 6.0 #L Albumin 3.3 # Globulin 2.70 Albumin/Globulin 1.22 Ratio Triglycerides 90 Level Cholesterol Level 183 LDL Cholesterol, 113 Calculated HDL Cholesterol 52 Cholesterol/HDL 3.5 Ratio Exam/Review of Systems Exam Vitals Vital Signs Date Temp Pulse Resp B/P (MAP) Pulse Ox O2 O2 Flow FiO2 Time Delivery Rate 01/14/19 98.2 78 19 125/57 98 07:34 (79) 01/13/19 Room Air 16:37 Intake and Output 01/13/19 01/13/19 01/14/19 1515:00 23:00 07:00 IntakeIntake Total 1200 ml 1200 ml OutputOutput Total 2300 ml BalanceBalance 1200 ml -2300 ml 1200 ml Results Results 24hrs Laboratory Tests Test 01/13/19 10:04 01/13/19 10:30 01/13/19 17:58 01/13/19 20:45 White Blood Count 4.0 L Red Blood Count 3.07 L Hemoglobin 9.9 L Hematocrit 28.5 L Mean Corpuscular 92.8 Volume Mean Corpuscular 32.2 Hemoglobin Mean Corpuscular 34.7 Hemoglobin Concen t Red Cell 13.3 Distribution Width Platelet Count 266 Mean Platelet 8.7 Volume Immature 0.500 H Granulocytes % Neutrophils % 60.6 Lymphocytes % 31.0 Monocytes % 7.1 Eosinophils % 0.5 Basophils % 0.3 Nucleated Red 0.0 Blood Cells % Immature 0.020 Granulocytes # Neutrophils # 2.4 Lymphocytes # 1.2 Monocytes # 0.3 Eosinophils # 0.0 Basophils # 0.0 Nucleated Red 0.0 Blood Cells # Prothrombin Time 11.7 L Prothrombin Time 0.9 Ratio INR International 0.85 Normalized Ratio Activated 26.3 Partial Thrombopl ast Time Sodium Level 132 L Potassium Level 4.0 Chloride Level 95 L Carbon Dioxide 27 Level Anion Gap 10 Blood Urea 13 Nitrogen Creatinine 0.69 Est Glomerular Filtrat Rate mL/min Glucose Level 121 Hemoglobin A1c 5.2 Calcium Level 10.4 H Total Bilirubin 0.4 Direct Bilirubin 0.00 Indirect 0.4 Bilirubin Aspartate Amino 22 Transf (AST/SGOT) Alanine 15 Aminotransferase (ALT/SGPT) Alkaline 42 Phosphatase Troponin I < 0.012 Total Protein 7.6 Albumin 4.5 Globulin 3.10 Albumin/Globulin 1.45 Ratio Thyroid 4.650 Stimulating Hormone (TSH) Free Thyroxine 1.38 Urine Color YELLOW Urine Clarity SLIGHTLY CLOUDY A Urine pH 9.0 Urine Specific 1.005 [place] Urine Ketones NEGATIVE Urine Nitrite POSITIVE A Urine Bilirubin NEGATIVE Urine NEGATIVE Urobilinogen Urine Leukocyte 3+ H Esterase Urine Microscopic 4 RBC Urine Microscopic 145 H WBC Urine Squamous FEW Epithelial Cells Urine Bacteria FEW A Urine Hemoglobin NEGATIVE Urine Glucose NEGATIVE Urine Total NEGATIVE Protein Bedside Glucose 100 102 Test 01/14/19 01:30 01/14/19 04:38 01/14/19 05:50 01/14/19 08:00 Bedside Glucose 101 93 95 White Blood Count 4.5 L Red Blood Count 2.54 L Hemoglobin 8.2 L Hematocrit 23.5 L Mean Corpuscular 92.5 Volume Mean Corpuscular 32.3 Hemoglobin Mean Corpuscular 34.9 Hemoglobin Concen t Red Cell 13.5 Distribution Width Platelet Count 249 Mean Platelet 9.5 Volume Immature 0.200 Granulocytes % Neutrophils % 65.5 Lymphocytes % 26.3 Monocytes % 7.6 Eosinophils % 0.2 Basophils % 0.2 Nucleated Red 0.0 Blood Cells % Immature 0.010 Granulocytes # Neutrophils # 2.9 Lymphocytes # 1.2 Monocytes # 0.3 Eosinophils # 0.0 Basophils # 0.0 Nucleated Red 0.0 Blood Cells # Sodium Level 134 L Potassium Level 3.4 L Chloride Level 105 # Carbon Dioxide 21 Level Anion Gap 8 Blood Urea 8 Nitrogen Creatinine 0.59 Est Glomerular Filtrat Rate mL/min Glucose Level 83 Calcium Level 8.8 Phosphorus Level 3.5 Magnesium Level 1.8 Total Bilirubin 0.3 Direct Bilirubin 0.00 Indirect 0.3 Bilirubin Aspartate Amino 18 Transf (AST/SGOT) Alanine 14 Aminotransferase (ALT/SGPT) Alkaline 31 L Phosphatase Total Protein 6.0 #L Albumin 3.3 # Globulin 2.70 Albumin/Globulin 1.22 Ratio Triglycerides 90 Level Cholesterol Level 183 LDL Cholesterol, 113 Calculated HDL Cholesterol 52 Cholesterol/HDL 3.5 Ratio Medications Medication Current Medications Ondansetron HCl (Zofran Inj) 4 mg BRIDGE ORDER PRN IV NAUSEA/VOMITING; Start 01/13/19 at 12:30; Stop 01/14/19 at 12:29 Acetaminophen (Tylenol Tab) 650 mg ER BRIDGE PRN PO .MILD PAIN 1-3 OR TEMP; Start 01/13/19 at 12:30; Stop 01/14/19 at 12:29 IV Flush (NS 3 ml) 3 ml PER PROTOCOL IV ; Start 01/13/19 at 13:30 Ondansetron HCl (Zofran Inj) 4 mg Q6H PRN IV NAUSEA/VOMITING; Start 01/13/19 at 13:30 Acetaminophen (Tylenol Tab) 650 mg Q6H PRN PO .PAIN 1-3 OR TEMP; Start 01/13/19 at 13:30 Acetaminophen/ Hydrocodone Bitart ([place] (5/325)) 1 tab Q6H PRN PO .MOD PAIN 4- 6; Start 01/13/19 at 13:30 Ciprofloxacin/ Dextrose 200 ml @ 200 mls/hr Q12 IVPB Last administered on 01/14/19at 08:30; Admin Dose 200 MLS/HR; Start 01/13/19 at 21:00 Amlodipine Besylate (Norvasc) 5 mg DAILY PO Last administered on 01/14/19at 08:30; Admin Dose 5 MG; Start 01/14/19 at 09:00 Ferrous Sulfate (Ferrous Sulfate (Ec)) 325 mg DAILY PO Last administered on 01/14/19at 08:29; Admin Dose 325 MG; Start 01/14/19 at 09:00 Insulin Aspart (Novolog Insulin Pen) (Adult SC Insulin - Mild Algorithm)... Q4 SC ; Start 01/13/19 at 17:00 Miscellaneous Information 1 ea NOTE XX ; Start 01/13/19 at 14:30 Glucose (Glutose) 15 gm Q15M PRN PO DECREASED GLUCOSE; Start 01/13/19 at 14:30 Glucose (Glutose) 22.5 gm Q15M PRN PO DECREASED GLUCOSE; Start 01/13/19 at 14: 30 Dextrose (D50w Syringe) 25 ml Q15M PRN IV DECREASED GLUCOSE; Start 01/13/19 at 14:30 Dextrose (D50w Syringe) 50 ml Q15M PRN IV DECREASED GLUCOSE; Start 01/13/19 at 14:30 Glucagon (Glucagen) 1 mg Q15M PRN IM DECREASED GLUCOSE; Start 01/13/19 at 14:30 Glucose (Glutose) 15 gm Q15M PRN BUCCAL DECREASED GLUCOSE; Start 01/13/19 at 14:30 ADAM BLANCO NP Jan 14, 2019 09:51
[2019-01-14 14:28] VITALS: BP 129/68; PULSE 82; RESP 19
--- NOTE | 2019-01-14 18:42 | CONS ---
Consult Date/Type/Reason Admit Date/Time Jan 13, 2019 at 12:27 Initial Consult Date 01/13/19 Type of Consultation: Urology Reason for Consultation Urinary retention, neurogenic bladder Requesting Provider: DREA OSBORNE MD Date/Time of Note DATE: 01/14/19 TIME: 18:39 Subjective Patient is comfortable her bladder is full and distended yet she is comfortable. 3 nurses attempted to do straight cath on her unsuccessfully Objective Vitals Vital Signs Date Temp Pulse Resp B/P (MAP) Pulse Ox O2 O2 Flow FiO2 Time Delivery Rate 01/14/19 98.1 82 19 129/68 98 14:28 (88) 01/13/19 Room Air 16:37 Intake and Output 01/13/19 01/13/19 01/14/19 1515:00 23:00 07:00 IntakeIntake Total 1200 ml 1200 ml OutputOutput Total 2300 ml BalanceBalance 1200 ml -2300 ml 1200 ml Exam Bladder is full and bladder scan showing over 400 mL. Results/Medications Result Diagram: 01/14/19 0438 01/14/19 0438 Results 24 hrs Laboratory Tests Test 01/13/19 20:45 01/14/19 01:30 01/14/19 04:38 01/14/19 05:50 Bedside Glucose 102 101 93 White Blood Count 4.5 L Red Blood Count 2.54 L Hemoglobin 8.2 L Hematocrit 23.5 L Mean Corpuscular Volume 92.5 Mean Corpuscular 32.3 Hemoglobin Mean Corpuscular 34.9 Hemoglobin Concent Red Cell Distribution 13.5 Width Platelet Count 249 Mean Platelet Volume 9.5 Immature Granulocytes % 0.200 Neutrophils % 65.5 Lymphocytes % 26.3 Monocytes % 7.6 Eosinophils % 0.2 Basophils % 0.2 Nucleated Red Blood 0.0 Cells % Immature Granulocytes # 0.010 Neutrophils # 2.9 Lymphocytes # 1.2 Monocytes # 0.3 Eosinophils # 0.0 Basophils # 0.0 Nucleated Red Blood 0.0 Cells # Sodium Level 134 L Potassium Level 3.4 L Chloride Level 105 # Carbon Dioxide Level 21 Anion Gap 8 Blood Urea Nitrogen 8 Creatinine 0.59 Est Glomerular Filtrat Rate mL/min Glucose Level 83 Calcium Level 8.8 Phosphorus Level 3.5 Magnesium Level 1.8 Total Bilirubin 0.3 Direct Bilirubin 0.00 Indirect Bilirubin 0.3 Aspartate Amino 18 Transf (AST/SGOT) Alanine 14 Aminotransferase (ALT/S GPT) Alkaline Phosphatase 31 L Total Protein 6.0 #L Albumin 3.3 # Globulin 2.70 Albumin/Globulin Ratio 1.22 Triglycerides Level 90 Cholesterol Level 183 LDL Cholesterol, 113 Calculated HDL Cholesterol 52 Cholesterol/HDL Ratio 3.5 Test 01/14/19 08:00 01/14/19 12:44 01/14/19 17:18 Bedside Glucose 95 105 122 Home Meds Reported Medications Calcium Carbonate/Vitamin D3 (OYSTERCAL-D 500 MG-400 UNIT TB) 1 Each Tablet, 1 EACH PO BID, TAB 01/13/19 Hydrocortisone (PROCTOSOL-HC) 28.35 Gm Cream..g., 28.35 GM RC PRN PRN for HEMORRHOID/EPISIOTMY PAIN 01/13/19 Docusate Sodium* (Dok*) 100 Mg Tablet, 100 MG PO DAILY, #30 CAP 01/13/19 Meloxicam* (Mobic*) 15 Mg Tablet, 15 MG PO DAILY, #30 TAB 01/13/19 Sodium Chloride* (Sodium Chloride*) 1 Gm Tablet, 1 GM PO DAILY, TAB 01/13/19 Hydrocodone/Acetaminophen ([place] 5-325 Tablet) 1 Each Tablet, 1 EACH PO BID PRN for PAIN, TAB 01/13/19 Alendronate Sodium* (Fosamax*) 70 Mg Tablet, 70 MG PO EVERY MONDAY, #4 TAB 01/13/19 Linagliptin-Metformin (Jentadueto) 2.5-500 Mg Tablet, 1 TAB PO BID, TAB 01/13/19 Amlodipine Besylate* (Norvasc*) 5 Mg Tablet, 5 MG PO DAILY, TAB 01/13/19 Pioglitazone Hcl* (Actos*) 45 Mg Tablet, 45 MG PO DAILY, #30 TAB 01/13/19 Ferrous Sulfate* (Ferrous Sulfate*) 325 Mg Tabec, 325 MG PO DAILY, TAB 01/13/19 Triamterene/Hctz* (Maxzide (37.5-25)*) 1 Each Tablet, 1 EACH PO DAILY, #30 TAB 01/13/19 Turmeric Root Extract (Turmeric) 500 Mg Capsule, 500 MG PO DAILY, CAP 01/13/19 Discontinued Reported Medications Calcium Carbonate/Vitamin D3 (Oyster Shell Calcium +D Tablet) 1 Each Tablet, 1 EACH PO BID, TAB 01/13/19 Medications Current Medications IV Flush (NS 3 ml) 3 ml PER PROTOCOL IV ; Start 01/13/19 at 13:30 Ondansetron HCl (Zofran Inj) 4 mg Q6H PRN IV NAUSEA/VOMITING; Start 01/13/19 at 13:30 Acetaminophen (Tylenol Tab) 650 mg Q6H PRN PO .PAIN 1-3 OR TEMP; Start 01/13/19 at 13:30 Acetaminophen/ Hydrocodone Bitart ([place] (5/325)) 1 tab Q6H PRN PO .MOD PAIN 4- 6; Start 01/13/19 at 13:30 Ciprofloxacin/ Dextrose 200 ml @ 200 mls/hr Q12 IVPB Last administered on 01/14/19at 08:30; Admin Dose 200 MLS/HR; Start 01/13/19 at 21:00 Amlodipine Besylate (Norvasc) 5 mg DAILY PO Last administered on 01/14/19at 08:3 0; Admin Dose 5 MG; Start 01/14/19 at 09:00 Ferrous Sulfate (Ferrous Sulfate (Ec)) 325 mg DAILY PO Last administered on 01/14/19at 08:29; Admin Dose 325 MG; Start 01/14/19 at 09:00 Insulin Aspart (Novolog Insulin Pen) (Adult SC Insulin - Mild Algorithm)... Q4 SC ; Start 01/13/19 at 17:00 Miscellaneous Information 1 ea NOTE XX ; Start 01/13/19 at 14:30 Glucose (Glutose) 15 gm Q15M PRN PO DECREASED GLUCOSE; Start 01/13/19 at 14:30 Glucose (Glutose) 22.5 gm Q15M PRN PO DECREASED GLUCOSE; Start 01/13/19 at 14:30 Dextrose (D50w Syringe) 25 ml Q15M PRN IV DECREASED GLUCOSE; Start 01/13/19 at 14:30 Dextrose (D50w Syringe) 50 ml Q15M PRN IV DECREASED GLUCOSE; Start 01/13/19 at 14:30 Glucagon (Glucagen) 1 mg Q15M PRN IM DECREASED GLUCOSE; Start 01/13/19 at 14:30 Glucose (Glutose) 15 gm Q15M PRN BUCCAL DECREASED GLUCOSE; Start 01/13/19 at 14:30 Enoxaparin Sodium (Lovenox) 30 mg DAILY SC ; Start 01/15/19 at 09:00 Assessment/Plan Hospital Course (Demo Recall) 83-year-old female presented to the emergency room with a history of weakness in both lower extremities and the patient was getting confused at home the past 2 days. Patient lives at home with her daughter and has been recently seeing her medical doctor for back pain and she was told that she does have osteoporosis and lumbar fracture which according to her daughter has been healing. However the patient was having more weakness in her lower extremities and also having more back pain and urinary incontinence. She has been wearing a diaper and according to her daughters when she is nervous she tries to hold her urine. Upon admission the patient underwent a CT scan of the abdomen and pelvis and that showed: No evidence of urolithiasis, diverticulitis or appendicitis. Mild to moderate left hydroureter nephrosis with transition in the upper pelvis. No stones seen. Question ureteral stricture versus reflux. Distended urinary bladder. Cholelithiasis. Vascular calcifications. Acute to subacute compression fractures L1 and L4 with retropulsion and compromise of the vertebral canal as above. Patient also had an MRI of the lumbar and thoracic spine and these did show: MRI of the lumbosacral spine: 1. The L1 compression fracture shows a signal pattern suggesting acute pathology with bone retropulsion causing severe central canal stenosis and impingement upon the proximal cauda equina at the junction with the conus, findings likely correlate with the provided clinical history. 2. The L4 compression deformity is chronic in signal pattern with mild bone retropulsion causing moderate central canal stenosis at the level of the superior endplate. 3. Severe acquired central canal stenosis at L4-5 caused by osteophyte and disc complex, facet arthropathy and ligamentum flavum hypertrophy. 4. Mild L5-S1 central canal stenosis caused by osteophyte and disc complex, facet arthropathy and ligamentum flavum hypertrophy. MRI of the thoracic spine: 1. The thoracic spinal cord signal is within normal limits and there is no significant central canal stenosis at any thoracic level. 2. There is degenerative disc narrowing with osteophyte and disc complexes at multiple thoracic levels as discussed above without significant central canal or foraminal compromise, no cord compression at the thoracic levels is present After her admission the patient was not urinating and the nurse did the bladder scan on her and that showed over 999 mL. I saw the patient around the same time and indeed her bladder was distended up to the umbilicus but yet the patient was not in severe pain. I did proceed and inserted a Mena catheter for her and over 2300 mL of urine drained out. The urine was clear. Impression: Urinary retention and atonic bladder most likely related to her back problems and also diabetes. Plan: The Mena catheter was removed this morning and the patient did not urinate all day. The nurse did do bladder scan on her and the bladder is distended and the bladder scan showed over 400 mL. Her nurse tried to do straight cath on her and was not successful she communicated with me and I told her to have other nurses try and she said to other nurses tried as well. When I came to see the patient I had the nurse in the room and I showed her where the meatus is and how to do it and I did straight catheter without any problems. The daughter was at bedside and also was watching so she could learn and do the straight cath for her at home later on KI VELÁSQUEZ MD Jan 14, 2019 18:42
[2019-01-14 19:53] VITALS: BP 138/61; PULSE 78; RESP 18
[2019-01-15 01:26] VITALS: BP 122/58; PULSE 65; RESP 18
[2019-01-15] MEDS ORDERED: MAGNESIUM HYDROXIDE 30ML CUP PO PRN (06:30)
[2019-01-15 07:33] VITALS: BP 148/65; PULSE 72; RESP 18
[2019-01-15] MEDS: INSULIN ASPART [NOVOLOG] 3 ML PEN SC SCH ×4 (08:00→20:44)
--- NOTE | 2019-01-15 08:21 | CONS ---
Consult Date/Type/Reason Admit Date/Time Jan 13, 2019 at 12:27 Initial Consult Date 01/13/19 Type of Consultation: Urology Reason for Consultation Urinary retention Requesting Provider: DREA OSBORNE MD Date/Time of Note DATE: 01/15/19 TIME: 08:19 Subjective Patient is awake and alert and comfortable. She did not urinate on her own and was catheterized by the nurse at midnight and 500 mL drained out. Objective Vitals Vital Signs Date Temp Pulse Resp B/P (MAP) Pulse Ox O2 O2 Flow FiO2 Time Delivery Rate 01/15/19 98.7 72 18 148/65 100 07:33 (92) 01/13/19 Room Air 16:37 Intake and Output 01/14/19 01/14/19 01/15/19 1515:00 23:00 07:00 IntakeIntake Total 400 ml 360 ml OutputOutput Total 500 ml BalanceBalance 400 ml -140 ml Exam Abdomen is soft. There is no tenderness. The bladder is not distended now Results/Medications Result Diagram: 01/15/19 0435 01/15/19 0435 Results 24 hrs Laboratory Tests Test 01/14/19 12:44 01/14/19 17:18 01/14/19 21:03 01/15/19 04:35 Bedside Glucose 105 122 149 White Blood Count 5.2 Red Blood Count 2.75 L Hemoglobin 8.8 L Hematocrit 25.3 L Mean Corpuscular Volume 92.0 Mean Corpuscular 32.0 Hemoglobin Mean Corpuscular 34.8 Hemoglobin Concent Red Cell Distribution 13.6 Width Platelet Count 260 Mean Platelet Volume 9.5 Immature Granulocytes % 0.400 Neutrophils % 62.9 Lymphocytes % 24.6 Monocytes % 7.9 Eosinophils % 3.8 Basophils % 0.4 Nucleated Red Blood 0.0 Cells % Immature Granulocytes # 0.020 Neutrophils # 3.3 Lymphocytes # 1.3 Monocytes # 0.4 Eosinophils # 0.2 Basophils # 0.0 Nucleated Red Blood 0.0 Cells # Sodium Level 135 Potassium Level 3.6 Chloride Level 106 Carbon Dioxide Level 21 Anion Gap 8 Blood Urea Nitrogen 7 Creatinine 0.54 Est Glomerular Filtrat Rate mL/min Glucose Level 96 Calcium Level 8.6 Phosphorus Level 3.1 Magnesium Level 2.0 Test 01/15/19 08:08 Bedside Glucose 116 Home Meds Reported Medications Calcium Carbonate/Vitamin D3 (OYSTERCAL-D 500 MG-400 UNIT TB) 1 Each Tablet, 1 EACH PO BID, TAB 01/13/19 Hydrocortisone (PROCTOSOL-HC) 28.35 Gm Cream..g., 28.35 GM RC PRN PRN for HEMORRHOID/EPISIOTMY PAIN 01/13/19 Docusate Sodium* (Dok*) 100 Mg Tablet, 100 MG PO DAILY, #30 CAP 01/13/19 Meloxicam* (Mobic*) 15 Mg Tablet, 15 MG PO DAILY, #30 TAB 01/13/19 Sodium Chloride* (Sodium Chloride*) 1 Gm Tablet, 1 GM PO DAILY, TAB 01/13/19 Hydrocodone/Acetaminophen ([place] 5-325 Tablet) 1 Each Tablet, 1 EACH PO BID PRN for PAIN, TAB 01/13/19 Alendronate Sodium* (Fosamax*) 70 Mg Tablet, 70 MG PO EVERY MONDAY, #4 TAB 01/13/19 Linagliptin-Metformin (Jentadueto) 2.5-500 Mg Tablet, 1 TAB PO BID, TAB 01/13/19 Amlodipine Besylate* (Norvasc*) 5 Mg Tablet, 5 MG PO DAILY, TAB 01/13/19 Pioglitazone Hcl* (Actos*) 45 Mg Tablet, 45 MG PO DAILY, #30 TAB 01/13/19 Ferrous Sulfate* (Ferrous Sulfate*) 325 Mg Tabec, 325 MG PO DAILY, TAB 01/13/19 Triamterene/Hctz* (Maxzide (37.5-25)*) 1 Each Tablet, 1 EACH PO DAILY, #30 TAB 01/13/19 Turmeric Root Extract (Turmeric) 500 Mg Capsule, 500 MG PO DAILY, CAP 01/13/19 Discontinued Reported Medications Calcium Carbonate/Vitamin D3 (Oyster Shell Calcium +D Tablet) 1 Each Tablet, 1 EACH PO BID, TAB 01/13/19 Medications Current Medications IV Flush (NS 3 ml) 3 ml PER PROTOCOL IV ; Start 01/13/19 at 13:30 Ondansetron HCl (Zofran Inj) 4 mg Q6H PRN IV NAUSEA/VOMITING; Start 01/13/19 at 13:30 Acetaminophen (Tylenol Tab) 650 mg Q6H PRN PO .PAIN 1-3 OR TEMP; Start 01/13/19 at 13:30 Acetaminophen/ Hydrocodone Bitart ([place] (5/325)) 1 tab Q6H PRN PO .MOD PAIN 4- 6; Start 01/13/19 at 13:30 Amlodipine Besylate (Norvasc) 5 mg DAILY PO Last administered on 01/14/19at 08:30; Admin Dose 5 MG; Start 01/14/19 at 09:00 Ferrous Sulfate (Ferrous Sulfate (Ec)) 325 mg DAILY PO Last administered on 01/14/19at 08:29; Admin Dose 325 MG; Start 01/14/19 at 09:00 Miscellaneous Information 1 ea NOTE XX ; Start 01/13/19 at 14:30 Glucose (Glutose) 15 gm Q15M PRN PO DECREASED GLUCOSE; Start 01/13/19 at 14:30 Glucose (Glutose) 22.5 gm Q15M PRN PO DECREASED GLUCOSE; Start 01/13/19 at 14:30 Dextrose (D50w Syringe) 25 ml Q15M PRN IV DECREASED GLUCOSE; Start 01/13/19 at 14:30 Dextrose (D50w Syringe) 50 ml Q15M PRN IV DECREASED GLUCOSE; Start 01/13/19 at 14:30 Glucagon (Glucagen) 1 mg Q15M PRN IM DECREASED GLUCOSE; Start 01/13/19 at 14:30 Glucose (Glutose) 15 gm Q15M PRN BUCCAL DECREASED GLUCOSE; Start 01/13/19 at 14:30 Enoxaparin Sodium (Lovenox) 30 mg DAILY SC ; Start 01/15/19 at 09:00 Insulin Aspart (Novolog Insulin Pen) NOVOLOG *MILD* ALGORITHM WITH MEALS BEDTIME SC ; Start 01/15/19 at 08:00 Senna (Senokot) 2 tab BID PO ; Start 01/15/19 at 09:00 Magnesium Hydroxide (Milk Of Mag) 30 ml BID PRN PO CONSTIPATION; Start 01/15/19 at 06:30 Levofloxacin (Levaquin) 500 mg DAILY@06 PO ; Start 01/15/19 at 09:00 Assessment/Plan Hospital Course (Demo Recall) 83-year-old female presented to the emergency room with a history of weakness in both lower extremities and the patient was getting confused at home the past 2 days. Patient lives at home with her daughter and has been recently seeing her medical doctor for back pain and she was told that she does have osteoporosis and lumbar fracture which according to her daughter has been healing. However the patient was having more weakness in her lower extremities and also having more back pain and urinary incontinence. She has been wearing a diaper and according to her daughters when she is nervous she tries to hold her urine. Upon admission the patient underwent a CT scan of the abdomen and pelvis and that showed: No evidence of urolithiasis, diverticulitis or appendicitis. Mild to moderate left hydroureter nephrosis with transition in the upper pelvis. No stones seen. Question ureteral stricture versus reflux. Distended urinary bladder. Cholelithiasis. Vascular calcifications. Acute to subacute compression fractures L1 and L4 with retropulsion and compromise of the vertebral canal as above. Patient also had an MRI of the lumbar and thoracic spine and these did show: MRI of the lumbosacral spine: 1. The L1 compression fracture shows a signal pattern suggesting acute pathology with bone retropulsion causing severe central canal stenosis and impingement upon the proximal cauda equina at the junction with the conus, findings likely correlate with the provided clinical history. 2. The L4 compression deformity is chronic in signal pattern with mild bone retropulsion causing moderate central canal stenosis at the level of the supe rior endplate. 3. Severe acquired central canal stenosis at L4-5 caused by osteophyte and disc complex, facet arthropathy and ligamentum flavum hypertrophy. 4. Mild L5-S1 central canal stenosis caused by osteophyte and disc complex, facet arthropathy and ligamentum flavum hypertrophy. MRI of the thoracic spine: 1. The thoracic spinal cord signal is within normal limits and there is no significant central canal stenosis at any thoracic level. 2. There is degenerative disc narrowing with osteophyte and disc complexes at multiple thoracic levels as discussed above without significant central canal or foraminal compromise, no cord compression at the thoracic levels is present After her admission the patient was not urinating and the nurse did the bladder scan on her and that showed over 999 mL. I saw the patient around the same time and indeed her bladder was distended up to the umbilicus but yet the patient was not in severe pain. I did proceed and inserted a Mena catheter for her and over 2300 mL of urine drained out. The urine was clear. Impression: Urinary retention and atonic bladder most likely related to her back problems Plan is to continue in and out catheterization and teach her daughters to do that for her. KI VELÁSQUEZ MD Jan 15, 2019 08:21
[2019-01-15] MEDS: LEVOFLOXACIN 500 MG TAB PO SCH (08:48)
[2019-01-15] MEDS: FERROUS SULFATE (EC) 325 MG TAB PO SCH (08:48)
[2019-01-15] MEDS: SENNA TAB PO SCH ×2 (08:49→20:42)
[2019-01-15] MEDS: AMLODIPINE 5 MG TAB PO SCH (08:49)
[2019-01-15] MEDS: ENOXAPARIN 30 MG/0.3 ML SYG SC SCH (08:51)
[2019-01-15] MEDS ORDERED: LORAZEPAM 2 MG INJ IV ONE (11:30)
--- NOTE | 2019-01-15 12:14 | PN ---
Date/Time of Note Date/Time of Note DATE: 01/15/19 TIME: 12:11 Assessment/Plan VTE Prophylaxis Risk score (from Ns)>0 risk: 3 SCD applied (from Ns): No SCD contraindicated: other Pharmacological prophylaxis: LMWH Lines/Catheters IV [facility]from [facility] [place] Assessment/Plan Hospital Course SUBJECTIVE: The patient has high volumes of urine the bladder as indicated by bladder scan. Nurse was unable to straight cath the patient. OBJECTIVE: Physical Exam General: Adequately build 83 year-old female lying in bed in no apparent distress. HEENT: Normocephalic, atraumatic. Eyes: Anicteric sclerae, conjunctivae clear. ENT: Nasal septum midline, oral mucosa is dry. Neck supple. Respiratory: Bilaterally diminished breath sounds. No use of accessory muscles of respiration. No adventitious breath sounds. Cardiovascular: S1, S2 heard. Regular rate and rhythm. Abdomen: Soft, nontender, and nondistended. Bowel sounds positive in all 4 quadrants. Genitourinary: Deferred. Extremities: No cyanosis, no clubbing, no edema. Peripheral pulses palpable. Neurologic: The patient is awake and alert. B/L LE weak when compared to the upper extremities. Skin: Normal skin turgor. No skin rashes. Labs & Vitals per chart ASSESSMENT & PLAN 83-year-old female with comorbidities including hypertension, diabetes mellitus type 2, stroke, lumbar vertebral fracture, and left breast cancer who presented to the emergency room with chief complaint of bilateral lower extremity weakness and new onset confusion with evidence of underlying complicated urinary tract infection, who will be admitted to inpatient setting for further treatment and e valuation. 1. Complicated urinary tract infection. Urine culture showing Morganella morganii. Continue antimicrobials according to sensitivities. 2. Urinary retention with atonic bladder. Etiology could be secondary to underlying spinal problem. Being followed by urology. Status post Mena catheter placement on 01/13/2019. Status post Mena discontinuation. Bladder scan as advised by urology and straight cath as needed. 4. 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 Continue pain control. Being followed by neurosurgery. Patient/family decided on surgical intervention. 5. Hypertension. Continue antihypertensives. 6. Diabetes mellitus type 2. Continue the patient on sliding scale insulin. Hemoglobin A1C 5.2. 7. Normocytic, normochromic anemia. Continue iron supplements. 8. Fluids, electrolytes, and nutrition. Carbohydrate controlled diet. 9. DVT prophylaxis. Bilateral SCDs. SQ Lovenox. 10. Plan. Continue antimicrobials. Family deciding on whether to proceed with surgical intervention recommended by the neurosurgeon. If family wants to do surgical intervention, will obtain cardiology clearance. Patient has significant urinary retention, but unable to straight cath despite trying by multiple RNs. Await urology to see the patient to catheterize the patient. Plan is teach the patient's daughter on periodic catheterization. The patient was seen in collaboration with Dr. Anglin. Result Diagram: 01/15/19 0435 01/15/19 0435 Results 24hrs Laboratory Tests Test 01/14/19 12:44 01/14/19 17:18 01/14/19 21:03 01/15/19 04:35 Bedside Glucose 105 122 149 White Blood Count 5.2 Red Blood Count 2.75 L Hemoglobin 8.8 L Hematocrit 25.3 L Mean Corpuscular Volume 92.0 Mean Corpuscular 32.0 Hemoglobin Mean Corpuscular 34.8 Hemoglobin Concent Red Cell Distribution 13.6 Width Platelet Count 260 Mean Platelet Volume 9.5 Immature Granulocytes % 0.400 Neutrophils % 62.9 Lymphocytes % 24.6 Monocytes % 7.9 Eosinophils % 3.8 Basophils % 0.4 Nucleated Red Blood 0.0 Cells % Immature Granulocytes # 0.020 Neutrophils # 3.3 Lymphocytes # 1.3 Monocytes # 0.4 Eosinophils # 0.2 Basophils # 0.0 Nucleated Red Blood 0.0 Cells # Sodium Level 135 Potassium Level 3.6 Chloride Level 106 Carbon Dioxide Level 21 Anion Gap 8 Blood Urea Nitrogen 7 Creatinine 0.54 Est Glomerular Filtrat Rate mL/min Glucose Level 96 Calcium Level 8.6 Phosphorus Level 3.1 Magnesium Level 2.0 Test 01/15/19 08:08 Bedside Glucose 116 Exam/Review of Systems Exam Vitals Vital Signs Date Temp Pulse Resp B/P (MAP) Pulse Ox O2 O2 Flow FiO2 Time Delivery Rate 01/15/19 98.7 72 18 148/65 100 07:33 (92) 01/13/19 Room Air 16:37 Intake and Output 01/14/19 01/14/19 01/15/19 1515:00 23:00 07:00 IntakeIntake Total 400 ml 360 ml OutputOutput Total 500 ml BalanceBalance 400 ml -140 ml Results Results 24hrs Laboratory Tests Test 01/14/19 12:44 01/14/19 17:18 01/14/19 21:03 01/15/19 04:35 Bedside Glucose 105 122 149 White Blood Count 5.2 Red Blood Count 2.75 L Hemoglobin 8.8 L Hematocrit 25.3 L Mean Corpuscular Volume 92.0 Mean Corpuscular 32.0 Hemoglobin Mean Corpuscular 34.8 Hemoglobin Concent Red Cell Distribution 13.6 Width Platelet Count 260 Mean Platelet Volume 9.5 Immature Granulocytes % 0.400 Neutrophils % 62.9 Lymphocytes % 24.6 Monocytes % 7.9 Eosinophils % 3.8 Basophils % 0.4 Nucleated Red Blood 0.0 Cells % Immature Granulocytes # 0.020 Neutrophils # 3.3 Lymphocytes # 1.3 Monocytes # 0.4 Eosinophils # 0.2 Basophils # 0.0 Nucleated Red Blood 0.0 Cells # Sodium Level 135 Potassium Level 3.6 Chloride Level 106 Carbon Dioxide Level 21 Anion Gap 8 Blood Urea Nitrogen 7 Creatinine 0.54 Est Glomerular Filtrat Rate mL/min Glucose Level 96 Calcium Level 8.6 Phosphorus Level 3.1 Magnesium Level 2.0 Test 01/15/19 08:08 Bedside Glucose 116 Medications Medication Current Medications IV Flush (NS 3 ml) 3 ml PER PROTOCOL IV ; Start 01/13/19 at 13:30 Ondansetron HCl (Zofran Inj) 4 mg Q6H PRN IV NAUSEA/VOMITING; Start 01/13/19 at 13:30 Acetaminophen (Tylenol Tab) 650 mg Q6H PRN PO .PAIN 1-3 OR TEMP; Start 01/13/19 at 13:30 Acetaminophen/ Hydrocodone Bitart ([place] (5/325)) 1 tab Q6H PRN PO .MOD PAIN 4- 6; Start 01/13/19 at 13:30 Amlodipine Besylate (Norvasc) 5 mg DAILY PO Last administered on 01/15/19at 08:49; Admin Dose 5 MG; Start 01/14/19 at 09:00 Ferrous Sulfate (Ferrous Sulfate (Ec)) 325 mg DAILY PO Last administered on 01/15/19at 08:48; Admin Dose 325 MG; Start 01/14/19 at 09:00 Miscellaneous Information 1 ea NOTE XX ; Start 01/13/19 at 14:30 Glucose (Glutose) 15 gm Q15M PRN PO DECREASED GLUCOSE; Start 01/13/19 at 14:30 Glucose (Glutose) 22.5 gm Q15M PRN PO DECREASED GLUCOSE; Start 01/13/19 at 14:3 0 Dextrose (D50w Syringe) 25 ml Q15M PRN IV DECREASED GLUCOSE; Start 01/13/19 at 14:30 Dextrose (D50w Syringe) 50 ml Q15M PRN IV DECREASED GLUCOSE; Start 01/13/19 at 14:30 Glucagon (Glucagen) 1 mg Q15M PRN IM DECREASED GLUCOSE; Start 01/13/19 at 14:30 Glucose (Glutose) 15 gm Q15M PRN BUCCAL DECREASED GLUCOSE; Start 01/13/19 at 14:30 Enoxaparin Sodium (Lovenox) 30 mg DAILY SC Last administered on 01/15/19at 08:51; Admin Dose 30 MG; Start 01/15/19 at 09:00 Insulin Aspart (Novolog Insulin Pen) NOVOLOG *MILD* ALGORITHM WITH MEALS BEDTIME SC ; Start 01/15/19 at 08:00 Senna (Senokot) 2 tab BID PO Last administered on 01/15/19at 08:49; Admin Dose 2 TAB; Start 01/15/19 at 09:00 Magnesium Hydroxide (Milk Of Mag) 30 ml BID PRN PO CONSTIPATION; Start 01/15/19 at 06:30 Levofloxacin (Levaquin) 500 mg DAILY@06 PO Last administered on 01/15/19at 08:48; Admin Dose 500 MG; Start 01/15/19 at 09:00 ADAM BLANCO NP Jan 15, 2019 12:14
[2019-01-15 13:31] VITALS: BP 137/65; PULSE 90; RESP 18
[2019-01-15 20:00] VITALS: BP 116/58; PULSE 82; RESP 17
[2019-01-16 02:24] VITALS: BP 104/51; PULSE 78; RESP 18
[2019-01-16] MEDS: LEVOFLOXACIN 500 MG TAB PO SCH (06:36)
[2019-01-16 07:45] VITALS: BP 118/56; PULSE 63; RESP 19
[2019-01-16] MEDS: AMLODIPINE 5 MG TAB PO SCH (08:32)
[2019-01-16] MEDS: SENNA TAB PO SCH ×2 (08:32→21:11)
[2019-01-16] MEDS: FERROUS SULFATE (EC) 325 MG TAB PO SCH (08:32)
[2019-01-16] MEDS: ENOXAPARIN 30 MG/0.3 ML SYG SC SCH (08:35)
[2019-01-16] MEDS: INSULIN ASPART [NOVOLOG] 3 ML PEN SC SCH ×4 (08:35→21:00)
--- NOTE | 2019-01-16 08:35 | CONS ---
Consult Date/Type/Reason Admit Date/Time Jan 13, 2019 at 12:27 Initial Consult Date 01/13/19 Type of Consultation: Urology Reason for Consultation Urinary retention Requesting Provider: DREA OSBORNE MD Date/Time of Note DATE: 01/16/19 TIME: 08:32 Subjective Patient is awake, alert and comfortable. She denies having any pain Objective Vitals Vital Signs Date Temp Pulse Resp B/P (MAP) Pulse Ox O2 O2 Flow FiO2 Time Delivery Rate 01/16/19 98.2 63 19 118/56 96 07:45 (76) 01/13/19 Room Air 16:37 Intake and Output 01/15/19 01/15/19 01/16/19 1515:00 23:00 07:00 IntakeIntake Total 880 ml 360 ml OutputOutput Total 400 ml 700 ml BalanceBalance 480 ml -340 ml Exam She was catheterized last night without difficulty. Urine culture did show Morganella morganii sensitive to Levaquin. Results/Medications Result Diagram: 01/16/19 0444 01/16/19 0444 Results 24 hrs Laboratory Tests Test 01/15/19 12:34 01/15/19 17:18 01/15/19 20:43 01/16/19 04:44 Bedside Glucose 125 135 135 White Blood Count 5.9 Red Blood Count 2.66 L Hemoglobin 8.7 L Hematocrit 24.7 L Mean Corpuscular Volume 92.9 Mean Corpuscular 32.7 Hemoglobin Mean Corpuscular 35.2 Hemoglobin Concent Red Cell Distribution 13.4 Width Platelet Count 256 Mean Platelet Volume 9.4 Immature Granulocytes % 0.500 H Neutrophils % 60.0 Lymphocytes % 25.0 Monocytes % 8.8 Eosinophils % 5.4 Basophils % 0.3 Nucleated Red Blood 0.0 Cells % Immature Granulocytes # 0.030 Neutrophils # 3.6 Lymphocytes # 1.5 Monocytes # 0.5 Eosinophils # 0.3 Basophils # 0.0 Nucleated Red Blood 0.0 Cells # Sodium Level 135 Potassium Level 3.8 Chloride Level 105 Carbon Dioxide Level 21 Anion Gap 9 Blood Urea Nitrogen 11 Creatinine 0.72 Est Glomerular Filtrat Rate mL/min Glucose Level 112 Calcium Level 8.7 Phosphorus Level 3.6 Magnesium Level 2.1 Test 01/16/19 07:58 Bedside Glucose 142 Home Meds Reported Medications Calcium Carbonate/Vitamin D3 (OYSTERCAL-D 500 MG-400 UNIT TB) 1 Each Tablet, 1 EACH PO BID, TAB 01/13/19 Hydrocortisone (PROCTOSOL-HC) 28.35 Gm Cream..g., 28.35 GM RC PRN PRN for HEMORRHOID/EPISIOTMY PAIN 01/13/19 Docusate Sodium* (Dok*) 100 Mg Tablet, 100 MG PO DAILY, #30 CAP 01/13/19 Meloxicam* (Mobic*) 15 Mg Tablet, 15 MG PO DAILY, #30 TAB 01/13/19 Sodium Chloride* (Sodium Chloride*) 1 Gm Tablet, 1 GM PO DAILY, TAB 01/13/19 Hydrocodone/Acetaminophen ([place] 5-325 Tablet) 1 Each Tablet, 1 EACH PO BID PRN for PAIN, TAB 01/13/19 Alendronate Sodium* (Fosamax*) 70 Mg Tablet, 70 MG PO EVERY MONDAY, #4 TAB 01/13/19 Linagliptin-Metformin (Jentadueto) 2.5-500 Mg Tablet, 1 TAB PO BID, TAB 01/13/19 Amlodipine Besylate* (Norvasc*) 5 Mg Tablet, 5 MG PO DAILY, TAB 01/13/19 Pioglitazone Hcl* (Actos*) 45 Mg Tablet, 45 MG PO DAILY, #30 TAB 01/13/19 Ferrous Sulfate* (Ferrous Sulfate*) 325 Mg Tabec, 325 MG PO DAILY, TAB 01/13/19 Triamterene/Hctz* (Maxzide (37.5-25)*) 1 Each Tablet, 1 EACH PO DAILY, #30 TAB 01/13/19 Turmeric Root Extract (Turmeric) 500 Mg Capsule, 500 MG PO DAILY, CAP 01/13/19 Discontinued Reported Medications Calcium Carbonate/Vitamin D3 (Oyster Shell Calcium +D Tablet) 1 Each Tablet, 1 EACH PO BID, TAB 01/13/19 Medications Current Medications IV Flush (NS 3 ml) 3 ml PER PROTOCOL IV ; Start 01/13/19 at 13:30 Ondansetron HCl (Zofran Inj) 4 mg Q6H PRN IV NAUSEA/VOMITING; Start 01/13/19 at 13:30 Acetaminophen (Tylenol Tab) 650 mg Q6H PRN PO .PAIN 1-3 OR TEMP; Start 01/13/19 at 13:30 Acetaminophen/ Hydrocodone Bitart ([place] (5/325)) 1 tab Q6H PRN PO .MOD PAIN 4- 6; Start 01/13/19 at 13:30 Amlodipine Besylate (Norvasc) 5 mg DAILY PO Last administered on 01/15/19at 08:49; Admin Dose 5 MG; Start 01/14/19 at 09:00 Ferrous Sulfate (Ferrous Sulfate (Ec)) 325 mg DAILY PO Last administered on 01/15/19at 08:48; Admin Dose 325 MG; Start 01/14/19 at 09:00 Miscellaneous Information 1 ea NOTE XX ; Start 01/13/19 at 14:30 Glucose (Glutose) 15 gm Q15M PRN PO DECREASED GLUCOSE; Start 01/13/19 at 14:30 Glucose (Glutose) 22.5 gm Q15M PRN PO DECREASED GLUCOSE; Start 01/13/19 at 14:30 Dextrose (D50w Syringe) 25 ml Q15M PRN IV DECREASED GLUCOSE; Start 01/13/19 at 14:30 Dextrose (D50w Syringe) 50 ml Q15M PRN IV DECREASED GLUCOSE; Start 01/13/19 at 14:30 Glucagon (Glucagen) 1 mg Q15M PRN IM DECREASED GLUCOSE; Start 01/13/19 at 14:30 Glucose (Glutose) 15 gm Q15M PRN BUCCAL DECREASED GLUCOSE; Start 01/13/19 at 14:30 Enoxaparin Sodium (Lovenox) 30 mg DAILY SC Last administered on 01/15/19at 08:51; Admin Dose 30 MG; Start 01/15/19 at 09:00 Insulin Aspart (Novolog Insulin Pen) NOVOLOG *MILD* ALGORITHM WITH MEALS BEDTIME SC ; Start 01/15/19 at 08:00 Senna (Senokot) 2 tab BID PO Last administered on 01/15/19at 20:42; Admin Dose 2 TAB; Start 01/15/19 at 09:00 Magnesium Hydroxide (Milk Of Mag) 30 ml BID PRN PO CONSTIPATION; Start 01/15/19 at 06:30 Levofloxacin (Levaquin) 500 mg DAILY@06 PO Last administered on 01/16/19at 06:36; Admin Dose 500 MG; Start 01/15/19 at 09:00 Assessment/Plan Hospital Course (Demo Recall) 83-year-old female presented to the emergency room with a history of weakness in both lower extremities and the patient was getting confused at home the past 2 days. Patient lives at home with her daughter and has been recently seeing her medical doctor for back pain and she was told that she does have osteoporosis and lumbar fracture which according to her daughter has been healing. However the patient was having more weakness in her lower extremities and also having more back pain and urinary incontinence. She has been wearing a diaper and according to her daughters when she is nervous she tries to hold her urine. Upon admission the patient underwent a CT scan of the abdomen and pelvis and that showed: No evidence of urolithiasis, diverticulitis or appendicitis. Mild to moderate left hydroureter nephrosis with transition in the upper pelvis. No stones seen. Question ureteral stricture versus reflux. Distended urinary bladder. Cholelithiasis. Vascular calcifications. Acute to subacute compression fractures L1 and L4 with retropulsion and compromise of the vertebral canal as above. Patient also had an MRI of the lumbar and thoracic spine and these did show: MRI of the lumbosacral spine: 1. The L1 compression fracture shows a signal pattern suggesting acute pathology with bone retropulsion causing severe central canal stenosis and impingement upon the proximal cauda equina at the junction with the conus, findings likely correlate with the provided clinical history. 2. The L4 compression deformity is chronic in signal pattern with mild bone retropulsion causing moderate central canal stenosis at the level of the superior endplate. 3. Severe acquired central canal stenosis at L4-5 caused by osteophyte and disc complex, facet arthropathy and ligamentum flavum hypertrophy. 4. Mild L5-S1 central canal stenosis caused by osteophyte and disc complex, facet arthropathy and ligamentum flavum hypertrophy. MRI of the thoracic spine: 1. The thoracic spinal cord signal is within normal limits and there is no significant central canal stenosis at any thoracic level. 2. There is degenerative disc narrowing with osteophyte and disc complexes at multiple thoracic levels as discussed above without significant central canal or foraminal compromise, no cord compression at the thoracic levels is present After her admission the patient was not urinating and the nurse did the bladder scan on her and that showed over 999 mL. I saw the patient around the same time and indeed her bladder was distended up to the umbilicus but yet the patient was not in severe pain. I did proceed and inserted a Mena catheter for her and over 2300 mL of urine drained out. The urine was clear. The patient has not been able to urinate on her own and she requires in and out catheterization. This has been done by the nursing staff and the daughters have been watching and willing to learn how to do those today continue doing it at home. I instructed the nurse to have the daughter try to do the catheterization today while in the hospital. Requested a registered nurse hh case manager consultation to arrange for catheters to continue doing the catheterization at home and home health visit to supervise that The urine culture did show Morganella morganii that is sensitive to Levaquin which the patient is on KI VELÁSQUEZ MD Jan 16, 2019 08:35
--- NOTE | 2019-01-16 13:05 | PN ---
Date/Time of Note Date/Time of Note DATE: 01/16/19 TIME: 13:05 Assessment/Plan VTE Prophylaxis Risk score (from Ns)>0 risk: 7 SCD applied (from Ns): No SCD contraindicated: other Pharmacological prophylaxis: LMWH Lines/Catheters [facility] Saline Lock Assessment/Plan Hospital Course SUBJECTIVE: Patient still getting straight cath every 6 hours per urology order. OBJECTIVE: Physical Exam General: Adequately build 83 year-old female lying in bed in no apparent distress. HEENT: Normocephalic, atraumatic. Eyes: Anicteric sclerae, conjunctivae clear. ENT: Nasal septum midline, oral mucosa is dry. Neck supple. Respiratory: Some diminished breath sounds. No use of accessory muscles of respiration. No adventitious breath sounds. Cardiovascular: S1, S2 heard. Regular rate and rhythm. Abdomen: Soft, nontender, and nondistended. Bowel sounds positive in all 4 quadrants. Genitourinary: Deferred. Extremities: No cyanosis, no clubbing, no edema. Peripheral pulses palpable. Neurologic: The patient is awake and alert. B/L LE weak when compared to the upper extremities. Labs & Vitals per chart ASSESSMENT & PLAN: 83-year-old female with comorbidities including hypertension, diabetes mellitus type 2, stroke, lumbar vertebral fracture, and left breast cancer who presented to the emergency room with chief complaint of bilateral lower extremity weakness and new onset confusion with evidence of underlying complicated urinary tract infection, who will be admitted to inpatient setting for further treatment and evaluation. 1. Complicated urinary tract infection.- Urine culture showing Morganella morganii. - Continue antimicrobials according to sensitivities. 2. Urinary retention with atonic bladder.-Etiology could be secondary to underlying spinal problem. Being followed by urology. Status post Mena catheter placement on 01/13/2019, then status post Mena discontinuation. - For now continue bladder scan as advised by urology and straight cath as needed. 4. 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 - Continue pain control. - Being followed by neurosurgery. - Patient/family apparently today have decided against surgical intervention, will discuss with neurosurgery team to see what other nonsurgical options are available for this patient's condition. 5. Hypertension. -Continue antihypertensives. 6. Diabetes mellitus type 2 - Hemoglobin A1C 5.2. -Continue the patient on sliding scale insulin. 7. Normocytic, normochromic anemia. - mContinue iron supplements. 8. Fluids, electrolytes, and nutrition. - Carbohydrate controlled diet. 9. DVT prophylaxis. 10. Plan. Continue antimicrobials Patient has significant urinary retention, as mentioned above, and now getting straight caths per urology recommendations Plan is teach the patient's daughter on periodic catheterization. Result Diagram: 01/16/19 0444 01/16/19 0444 Results 24hrs Laboratory Tests Test 01/15/19 17:18 01/15/19 20:43 01/16/19 04:44 01/16/19 07:58 Bedside Glucose 135 135 142 White Blood Count 5.9 Red Blood Count 2.66 L Hemoglobin 8.7 L Hematocrit 24.7 L Mean Corpuscular Volume 92.9 Mean Corpuscular 32.7 Hemoglobin Mean Corpuscular 35.2 Hemoglobin Concent Red Cell Distribution 13.4 Width Platelet Count 256 Mean Platelet Volume 9.4 Immature Granulocytes % 0.500 H Neutrophils % 60.0 Lymphocytes % 25.0 Monocytes % 8.8 Eosinophils % 5.4 Basophils % 0.3 Nucleated Red Blood 0.0 Cells % Immature Granulocytes # 0.030 Neutrophils # 3.6 Lymphocytes # 1.5 Monocytes # 0.5 Eosinophils # 0.3 Basophils # 0.0 Nucleated Red Blood 0.0 Cells # Sodium Level 135 Potassium Level 3.8 Chloride Level 105 Carbon Dioxide Level 21 Anion Gap 9 Blood Urea Nitrogen 11 Creatinine 0.72 Est Glomerular Filtrat Rate mL/min Glucose Level 112 Calcium Level 8.7 Phosphorus Level 3.6 Magnesium Level 2.1 Test 01/16/19 12:54 Bedside Glucose 122 Exam/Review of Systems Exam Vitals Vital Signs Date Temp Pulse Resp B/P (MAP) Pulse Ox O2 O2 Flow FiO2 Time Delivery Rate 01/16/19 98.2 63 19 118/56 96 07:45 (76) 01/13/19 Room Air 16:37 Intake and Output 01/15/19 01/15/19 01/16/19 1515:00 23:00 07:00 IntakeIntake Total 880 ml 360 ml OutputOutput Total 400 ml 700 ml BalanceBalance 480 ml -340 ml Results Results 24hrs Laboratory Tests Test 01/15/19 17:18 01/15/19 20:43 01/16/19 04:44 01/16/19 07:58 Bedside Glucose 135 135 142 White Blood Count 5.9 Red Blood Count 2.66 L Hemoglobin 8.7 L Hematocrit 24.7 L Mean Corpuscular Volume 92.9 Mean Corpuscular 32.7 Hemoglobin Mean Corpuscular 35.2 Hemoglobin Concent Red Cell Distribution 13.4 Width Platelet Count 256 Mean Platelet Volume 9.4 Immature Granulocytes % 0.500 H Neutrophils % 60.0 Lymphocytes % 25.0 Monocytes % 8.8 Eosinophils % 5.4 Basophils % 0.3 Nucleated Red Blood 0.0 Cells % Immature Granulocytes # 0.030 Neutrophils # 3.6 Lymphocytes # 1.5 Monocytes # 0.5 Eosinophils # 0.3 Basophils # 0.0 Nucleated Red Blood 0.0 Cells # Sodium Level 135 Potassium Level 3.8 Chloride Level 105 Carbon Dioxide Level 21 Anion Gap 9 Blood Urea Nitrogen 11 Creatinine 0.72 Est Glomerular Filtrat Rate mL/min Glucose Level 112 Calcium Level 8.7 Phosphorus Level 3.6 Magnesium Level 2.1 Test 01/16/19 12:54 Bedside Glucose 122 Medications Medication Current Medications IV Flush (NS 3 ml) 3 ml PER PROTOCOL IV ; Start 01/13/19 at 13:30 Ondansetron HCl (Zofran Inj) 4 mg Q6H PRN IV NAUSEA/VOMITING; Start 01/13/19 at 13:30 Acetaminophen (Tylenol Tab) 650 mg Q6H PRN PO .PAIN 1-3 OR TEMP; Start 01/13/19 at 13:30 Acetaminophen/ Hydrocodone Bitart ([place] (5/325)) 1 tab Q6H PRN PO .MOD PAIN 4- 6; Start 01/13/19 at 13:30 Amlodipine Besylate (Norvasc) 5 mg DAILY PO Last administered on 01/16/19at 08:32; Admin Dose 5 MG; Start 01/14/19 at 09:00 Ferrous Sulfate (Ferrous Sulfate (Ec)) 325 mg DAILY PO Last administered on 01/16/19at 08:32; Admin Dose 325 MG; Start 01/14/19 at 09:00 Miscellaneous Information 1 ea NOTE XX ; Start 01/13/19 at 14:30 Glucose (Glutose) 15 gm Q15M PRN PO DECREASED GLUCOSE; Start 01/13/19 at 14:30 Glucose (Glutose) 22.5 gm Q15M PRN PO DECREASED GLUCOSE; Start 01/13/19 at 14:30 Dextrose (D50w Syringe) 25 ml Q15M PRN IV DECREASED GLUCOSE; Start 01/13/19 at 14:30 Dextrose (D50w Syringe) 50 ml Q15M PRN IV DECREASED GLUCOSE; Start 01/13/19 at 14:30 Glucagon (Glucagen) 1 mg Q15M PRN IM DECREASED GLUCOSE; Start 01/13/19 at 14:30 Glucose (Glutose) 15 gm Q15M PRN BUCCAL DECREASED GLUCOSE; Start 01/13/19 at 14:30 Enoxaparin Sodium (Lovenox) 30 mg DAILY SC Last administered on 01/16/19at 08:35; Admin Dose 30 MG; Start 01/15/19 at 09:00 Insulin Aspart (Novolog Insulin Pen) NOVOLOG *MILD* ALGORITHM WITH MEALS BEDTIME SC Last administered on 01/16/19at 08:35; Admin Dose 1 UNIT; Start 01/15/19 at 08:00 Senna (Senokot) 2 tab BID PO Last administered on 01/16/19at 08:32; Admin Dose 2 TAB; Start 01/15/19 at 09:00 Magnesium Hydroxide (Milk Of Mag) 30 ml BID PRN PO CONSTIPATION; Start 01/15/19 at 06:30 Levofloxacin (Levaquin) 500 mg DAILY@06 PO Last administered on 01/16/19at 06:36; Admin Dose 500 MG; Start 01/15/19 at 09:00 GABY MORA Jan 16, 2019 13:05
[2019-01-16 14:43] VITALS: BP 118/56; PULSE 79; RESP 14
[2019-01-16 19:53] VITALS: BP 113/55; PULSE 75; RESP 16
[2019-01-17 01:54] VITALS: BP 119/58; PULSE 71; RESP 16
[2019-01-17] MEDS: LEVOFLOXACIN 500 MG TAB PO SCH (06:22)
[2019-01-17 07:50] VITALS: BP 111/56; PULSE 72; RESP 18
[2019-01-17] MEDS: INSULIN ASPART [NOVOLOG] 3 ML PEN SC SCH ×4 (08:00→21:00)
[2019-01-17] MEDS: FERROUS SULFATE (EC) 325 MG TAB PO SCH (08:42)
[2019-01-17] MEDS: AMLODIPINE 5 MG TAB PO SCH (08:43)
[2019-01-17] MEDS: SENNA TAB PO SCH ×2 (08:43→21:19)
[2019-01-17] MEDS: ENOXAPARIN 30 MG/0.3 ML SYG SC SCH (08:45)
[2019-01-17 14:59] VITALS: BP 129/59; PULSE 85; RESP 16
--- NOTE | 2019-01-17 15:34 | PN ---
Date/Time of Note Date/Time of Note DATE: 01/17/19 TIME: 15:21 Assessment/Plan VTE Prophylaxis Risk score (from Ns)>0 risk: 7 SCD applied (from Ns): No SCD contraindicated: other Pharmacological prophylaxis: LMWH Lines/Catheters [facility] Saline Lock Urinary Cath still in place: No Assessment/Plan Hospital Course SUBJECTIVE: Patient still getting straight cath every 6 hours, complaining of some dizziness. OBJECTIVE: Physical Exam General: Adequately build 83 year-old female lying in bed in no apparent distress. HEENT: Normocephalic, atraumatic. Eyes: Anicteric sclerae, conjunctivae clear. ENT: Nasal septum midline, oral mucosa is dry. Neck supple. Respiratory: Some diminished breath sounds. No use of accessory muscles of respiration. No adventitious breath sounds. Cardiovascular: S1, S2 heard. Regular rate and rhythm. Abdomen: Soft, nontender, and nondistended. Bowel sounds positive in all 4 quadrants. Genitourinary: Deferred. Extremities: No cyanosis, no clubbing, no edema. Peripheral pulses palpable. Neurologic: The patient is awake and alert. B/L LE weak when compared to the upper extremities. ASSESSMENT & PLAN: 83-year-old female with comorbidities including hypertension, diabetes mellitus type 2, stroke, lumbar vertebral fracture, and left breast cancer who presented to the emergency room with chief complaint of bilateral lower extremity weakness and new onset confusion with evidence of underlying complicated urinary tract infection, who will be admitted to inpatient setting for further treatment and evaluation. 1. Complicated urinary tract infection.- Urine culture showing Morganella morganii. - Continue antimicrobials according to sensitivities. 2. Urinary retention with atonic bladder.-Etiology could be secondary to underlying spinal problem. Being followed by urology. Status post Mena catheter placement on 01/13/2019, then status post Mena discontinuation. - For now continue bladder scan as advised by urology and straight cath as needed. 4. L1, L4 compression fracture with severe acquired central canal stenosis at L4-L5 and mild L5-S1 central canal stenosis, with subsequent worsening lower extremity paraparesis over the last couple of months. - Continue pain control. - Being followed by neurosurgery- Patient/family upon discussion with him yesterday decided against surgical intervention, will discuss with neurosurgery team to see what other nonsurgical options are available for this patient's condition. Per neurosurgery team, not having the surgery (although it would be a very comp gated surgery) could lead to paraplegia. 5. Hypertension. -Continue antihypertensives. 6. Diabetes mellitus type 2 - Hemoglobin A1C 5.2. -Continue the patient on sliding scale insulin. 7. Normocytic, normochromic anemia. - mContinue iron supplements. 8. Fluids, electrolytes, and nutrition. - Carbohydrate controlled diet. 9. DVT prophylaxis. 10. Plan. Continue antimicrobials Patient has significant urinary retention, as mentioned above, and now getting straight caths per urology recommendations Plan is teach the patient's daughter on periodic catheterization. Result Diagram: 01/17/19 0506 01/17/19 0506 Results 24hrs Laboratory Tests Test 01/16/19 17:24 01/16/19 21:09 01/17/19 05:06 01/17/19 08:41 Bedside Glucose 132 132 118 White Blood Count 5.0 Red Blood Count 2.71 L Hemoglobin 8.8 L Hematocrit 25.0 L Mean Corpuscular Volume 92.3 Mean Corpuscular 32.5 Hemoglobin Mean Corpuscular 35.2 Hemoglobin Concent Red Cell Distribution 13.5 Width Platelet Count 271 Mean Platelet Volume 9.1 Immature Granulocytes % 0.400 Neutrophils % 56.3 Lymphocytes % 28.3 Monocytes % 8.0 Eosinophils % 6.6 Basophils % 0.4 Nucleated Red Blood 0.0 Cells % Immature Granulocytes # 0.020 Neutrophils # 2.8 Lymphocytes # 1.4 Monocytes # 0.4 Eosinophils # 0.3 Basophils # 0.0 Nucleated Red Blood 0.0 Cells # Sodium Level 135 Potassium Level 4.0 Chloride Level 105 Carbon Dioxide Level 21 Anion Gap 9 Blood Urea Nitrogen 9 Creatinine 0.55 Est Glomerular Filtrat Rate mL/min Glucose Level 107 Calcium Level 9.3 Phosphorus Level 3.5 Magnesium Level 2.2 Test 01/17/19 12:35 Bedside Glucose 144 Exam/Review of Systems Exam Vitals Vital Signs Date Temp Pulse Resp B/P (MAP) Pulse Ox O2 O2 Flow FiO2 Time Delivery Rate 01/17/19 98.7 85 16 129/59 97 14:59 (82) 01/13/19 Room Air 16:37 Intake and Output 01/16/19 01/16/19 01/17/19 1515:00 23:00 07:00 IntakeIntake Total 1000 ml 480 ml OutputOutput Total 1150 ml 150 ml BalanceBalance -150 ml 330 ml Results Results 24hrs Laboratory Tests Test 01/16/19 17:24 01/16/19 21:09 01/17/19 05:06 01/17/19 08:41 Bedside Glucose 132 132 118 White Blood Count 5.0 Red Blood Count 2.71 L Hemoglobin 8.8 L Hematocrit 25.0 L Mean Corpuscular Volume 92.3 Mean Corpuscular 32.5 Hemoglobin Mean Corpuscular 35.2 Hemoglobin Concent Red Cell Distribution 13.5 Width Platelet Count 271 Mean Platelet Volume 9.1 Immature Granulocytes % 0.400 Neutrophils % 56.3 Lymphocytes % 28.3 Monocytes % 8.0 Eosinophils % 6.6 Basophils % 0.4 Nucleated Red Blood 0.0 Cells % Immature Granulocytes # 0.020 Neutrophils # 2.8 Lymphocytes # 1.4 Monocytes # 0.4 Eosinophils # 0.3 Basophils # 0.0 Nucleated Red Blood 0.0 Cells # Sodium Level 135 Potassium Level 4.0 Chloride Level 105 Carbon Dioxide Level 21 Anion Gap 9 Blood Urea Nitrogen 9 Creatinine 0.55 Est Glomerular Filtrat Rate mL/min Glucose Level 107 Calcium Level 9.3 Phosphorus Level 3.5 Magnesium Level 2.2 Test 01/17/19 12:35 Bedside Glucose 144 Medications Medication Current Medications IV Flush (NS 3 ml) 3 ml PER PROTOCOL IV ; Start 01/13/19 at 13:30 Ondansetron HCl (Zofran Inj) 4 mg Q6H PRN IV NAUSEA/VOMITING; Start 01/13/19 at 13:30 Acetaminophen (Tylenol Tab) 650 mg Q6H PRN PO .PAIN 1-3 OR TEMP; Start 01/13/19 at 13:30 Acetaminophen/ Hydrocodone Bitart ([place] (5/325)) 1 tab Q6H PRN PO .MOD PAIN 4- 6; Start 01/13/19 at 13:30 Amlodipine Besylate (Norvasc) 5 mg DAILY PO Last administered on 01/17/19at 08:43; Admin Dose 5 MG; Start 01/14/19 at 09:00 Ferrous Sulfate (Ferrous Sulfate (Ec)) 325 mg DAILY PO Last administered on 01/17/19at 08:42; Admin Dose 325 MG; Start 01/14/19 at 09:00 Miscellaneous Information 1 ea NOTE XX ; Start 01/13/19 at 14:30 Glucose (Glutose) 15 gm Q15M PRN PO DECREASED GLUCOSE; Start 01/13/19 at 14:30 Glucose (Glutose) 22.5 gm Q15M PRN PO DECREASED GLUCOSE; Start 01/13/19 at 14:30 Dextrose (D50w Syringe) 25 ml Q15M PRN IV DECREASED GLUCOSE; Start 01/13/19 at 14:30 Dextrose (D50w Syringe) 50 ml Q15M PRN IV DECREASED GLUCOSE; Start 01/13/19 at 14:30 Glucagon (Glucagen) 1 mg Q15M PRN IM DECREASED GLUCOSE; Start 01/13/19 at 14:30 Glucose (Glutose) 15 gm Q15M PRN BUCCAL DECREASED GLUCOSE; Start 01/13/19 at 14:30 Enoxaparin Sodium (Lovenox) 30 mg DAILY SC Last administered on 01/17/19at 08:45; Admin Dose 30 MG; Start 01/15/19 at 09:00 Insulin Aspart (Novolog Insulin Pen) NOVOLOG *MILD* ALGORITHM WITH MEALS BEDTIME SC Last administered on 01/17/19at 12:38; Admin Dose 1 UNIT; Start 01/15/19 at 08:00 Senna (Senokot) 2 tab BID PO Last administered on 01/17/19at 08:43; Admin Dose 2 TAB; Start 01/15/19 at 09:00 Magnesium Hydroxide (Milk Of Mag) 30 ml BID PRN PO CONSTIPATION; Start 01/15/19 at 06:30 Levofloxacin (Levaquin) 500 mg DAILY@06 PO Last administered on 01/17/19at 06:22; Admin Dose 500 MG; Start 01/15/19 at 09:00 GABY MORA Jan 17, 2019 15:31
[2019-01-17] MEDS ORDERED: SOD CHLORIDE 0.9% 250 ML IV ONE (16:00)
[2019-01-17 19:23] VITALS: BP 114/56; PULSE 76; RESP 16
--- NOTE | 2019-01-17 19:32 | CONS ---
Consult Date/Type/Reason Admit Date/Time Jan 13, 2019 at 12:27 Initial Consult Date 01/13/19 Type of Consultation: Urology Reason for Consultation Urinary retention and neurogenic bladder Requesting Provider: DREA OSBORNE MD Date/Time of Note DATE: 01/17/19 TIME: 19:29 Subjective Patient is stable and no new events. Objective Vitals Vital Signs Date Temp Pulse Resp B/P (MAP) Pulse Ox O2 O2 Flow FiO2 Time Delivery Rate 01/17/19 98.2 76 16 114/56 98 19:23 (75) 01/13/19 Room Air 16:37 Intake and Output 01/16/19 01/16/19 01/17/19 1515:00 23:00 07:00 IntakeIntake Total 1000 ml 480 ml OutputOutput Total 1150 ml 150 ml BalanceBalance -150 ml 330 ml Exam Abdomen is soft and there is no tenderness in the bladder is not distended. Results/Medications Result Diagram: 01/17/19 0506 01/17/19 0506 Results 24 hrs Laboratory Tests Test 01/16/19 21:09 01/17/19 05:06 01/17/19 08:41 01/17/19 12:35 Bedside Glucose 132 118 144 White Blood Count 5.0 Red Blood Count 2.71 L Hemoglobin 8.8 L Hematocrit 25.0 L Mean Corpuscular Volume 92.3 Mean Corpuscular 32.5 Hemoglobin Mean Corpuscular 35.2 Hemoglobin Concent Red Cell Distribution 13.5 Width Platelet Count 271 Mean Platelet Volume 9.1 Immature Granulocytes % 0.400 Neutrophils % 56.3 Lymphocytes % 28.3 Monocytes % 8.0 Eosinophils % 6.6 Basophils % 0.4 Nucleated Red Blood 0.0 Cells % Immature Granulocytes # 0.020 Neutrophils # 2.8 Lymphocytes # 1.4 Monocytes # 0.4 Eosinophils # 0.3 Basophils # 0.0 Nucleated Red Blood 0.0 Cells # Sodium Level 135 Potassium Level 4.0 Chloride Level 105 Carbon Dioxide Level 21 Anion Gap 9 Blood Urea Nitrogen 9 Creatinine 0.55 Est Glomerular Filtrat Rate mL/min Glucose Level 107 Calcium Level 9.3 Phosphorus Level 3.5 Magnesium Level 2.2 Test 01/17/19 17:26 Bedside Glucose 144 Home Meds Reported Medications Calcium Carbonate/Vitamin D3 (OYSTERCAL-D 500 MG-400 UNIT TB) 1 Each Tablet, 1 EACH PO BID, TAB 01/13/19 Hydrocortisone (PROCTOSOL-HC) 28.35 Gm Cream..g., 28.35 GM RC PRN PRN for HEMORRHOID/EPISIOTMY PAIN 01/13/19 Docusate Sodium* (Dok*) 100 Mg Tablet, 100 MG PO DAILY, #30 CAP 01/13/19 Meloxicam* (Mobic*) 15 Mg Tablet, 15 MG PO DAILY, #30 TAB 01/13/19 Sodium Chloride* (Sodium Chloride*) 1 Gm Tablet, 1 GM PO DAILY, TAB 01/13/19 Hydrocodone/Acetaminophen ([place] 5-325 Tablet) 1 Each Tablet, 1 EACH PO BID PRN for PAIN, TAB 01/13/19 Alendronate Sodium* (Fosamax*) 70 Mg Tablet, 70 MG PO EVERY MONDAY, #4 TAB 01/13/19 Linagliptin-Metformin (Jentadueto) 2.5-500 Mg Tablet, 1 TAB PO BID, TAB 01/13/19 Amlodipine Besylate* (Norvasc*) 5 Mg Tablet, 5 MG PO DAILY, TAB 01/13/19 Pioglitazone Hcl* (Actos*) 45 Mg Tablet, 45 MG PO DAILY, #30 TAB 01/13/19 Ferrous Sulfate* (Ferrous Sulfate*) 325 Mg Tabec, 325 MG PO DAILY, TAB 01/13/19 Triamterene/Hctz* (Maxzide (37.5-25)*) 1 Each Tablet, 1 EACH PO DAILY, #30 TAB 01/13/19 Turmeric Root Extract (Turmeric) 500 Mg Capsule, 500 MG PO DAILY, CAP 01/13/19 Discontinued Reported Medications Calcium Carbonate/Vitamin D3 (Oyster Shell Calcium +D Tablet) 1 Each Tablet, 1 EACH PO BID, TAB 01/13/19 Medications Current Medications IV Flush (NS 3 ml) 3 ml PER PROTOCOL IV ; Start 01/13/19 at 13:30 Ondansetron HCl (Zofran Inj) 4 mg Q6H PRN IV NAUSEA/VOMITING; Start 01/13/19 at 13:30 Acetaminophen (Tylenol Tab) 650 mg Q6H PRN PO .PAIN 1-3 OR TEMP; Start 01/13/19 at 13:30 Acetaminophen/ Hydrocodone Bitart ([place] (5/325)) 1 tab Q6H PRN PO .MOD PAIN 4- 6; Start 01/13/19 at 13:30 Amlodipine Besylate (Norvasc) 5 mg DAILY PO Last administered on 01/17/19at 08:43; Admin Dose 5 MG; Start 01/14/19 at 09:00 Ferrous Sulfate (Ferrous Sulfate (Ec)) 325 mg DAILY PO Last administered on 01/17/19at 08:42; Admin Dose 325 MG; Start 01/14/19 at 09:00 Miscellaneous Information 1 ea NOTE XX ; Start 01/13/19 at 14:30 Glucose (Glutose) 15 gm Q15M PRN PO DECREASED GLUCOSE; Start 01/13/19 at 14:30 Glucose (Glutose) 22.5 gm Q15M PRN PO DECREASED GLUCOSE; Start 01/13/19 at 14:30 Dextrose (D50w Syringe) 25 ml Q15M PRN IV DECREASED GLUCOSE; Start 01/13/19 at 14:30 Dextrose (D50w Syringe) 50 ml Q15M PRN IV DECREASED GLUCOSE; Start 01/13/19 at 14:30 Glucagon (Glucagen) 1 mg Q15M PRN IM DECREASED GLUCOSE; Start 01/13/19 at 14:30 Glucose (Glutose) 15 gm Q15M PRN BUCCAL DECREASED GLUCOSE; Start 01/13/19 at 14:30 Enoxaparin Sodium (Lovenox) 30 mg DAILY SC Last administered on 01/17/19at 08:45; Admin Dose 30 MG; Start 01/15/19 at 09:00 Insulin Aspart (Novolog Insulin Pen) NOVOLOG *MILD* ALGORITHM WITH MEALS BEDTIME SC Last administered on 01/17/19at 17:28; Admin Dose 1 UNIT; Start 01/15/19 at 08:00 Senna (Senokot) 2 tab BID PO Last administered on 01/17/19at 08:43; Admin Dose 2 TAB; Start 01/15/19 at 09:00 Magnesium Hydroxide (Milk Of Mag) 30 ml BID PRN PO CONSTIPATION; Start 01/15/19 at 06:30 Levofloxacin (Levaquin) 500 mg DAILY@06 PO Last administered on 01/17/19at 06:22; Admin Dose 500 MG; Start 01/15/19 at 09:00 Assessment/Plan Hospital Course (Demo Recall) 83-year-old female presented to the emergency room with a history of weakness in both lower extremities and the patient was getting confused at home the past 2 days. Patient lives at home with her daughter and has been recently seeing her medical doctor for back pain and she was told that she does have osteoporosis and lumbar fracture which according to her daughter has been healing. However the patient was having more weakness in her lower extremities and also having more back pain and urinary incontinence. She has been wearing a diaper and according to her daughters when she is nervous she tries to hold her urine. Upon admission the patient underwent a CT scan of the abdomen and pelvis and nerissa t showed: No evidence of urolithiasis, diverticulitis or appendicitis. Mild to moderate left hydroureter nephrosis with transition in the upper pelvis. No stones seen. Question ureteral stricture versus reflux. Distended urinary bladder. Cholelithiasis. Vascular calcifications. Acute to subacute compression fractures L1 and L4 with retropulsion and compromise of the vertebral canal as above. Patient also had an MRI of the lumbar and thoracic spine and these did show: MRI of the lumbosacral spine: 1. The L1 compression fracture shows a signal pattern suggesting acute pathology with bone retropulsion causing severe central canal stenosis and impingement upon the proximal cauda equina at the junction with the conus, findings likely correlate with the provided clinical history. 2. The L4 compression deformity is chronic in signal pattern with mild bone retropulsion causing moderate central canal stenosis at the level of the superior endplate. 3. Severe acquired central canal stenosis at L4-5 caused by osteophyte and disc complex, facet arthropathy and ligamentum flavum hypertrophy. 4. Mild L5-S1 central canal stenosis caused by osteophyte and disc complex, facet arthropathy and ligamentum flavum hypertrophy. MRI of the thoracic spine: 1. The thoracic spinal cord signal is within normal limits and there is no significant central canal stenosis at any thoracic level. 2. There is degenerative disc narrowing with osteophyte and disc complexes at multiple thoracic levels as discussed above without significant central canal or foraminal compromise, no cord compression at the thoracic levels is present After her admission the patient was not urinating and the nurse did the bladder scan on her and that showed over 999 mL. I saw the patient around the same time and indeed her bladder was distended up to the umbilicus but yet the patient was not in severe pain. I did proceed and inserted a Mena catheter for her and over 2300 mL of urine drained out. The urine was clear. After the Mena catheter was removed the patient was not able to urinate and she was put on intermittent catheterization. She needs to continue that during and after her hospitalization. The nurses now are doing the in and out catheterization for her and her daughter did catheterize her today. The daughters will continue doing that when they are at her bedside and it seems they are learning the technique and they will continue it after discharge. KI VELÁSQUEZ MD Jan 17, 2019 19:32
[2019-01-18 02:13] VITALS: BP 121/60; PULSE 75; RESP 18
[2019-01-18] MEDS: LEVOFLOXACIN 500 MG TAB PO SCH (06:14)
[2019-01-18 07:35] VITALS: BP 122/57; PULSE 74; RESP 18
[2019-01-18] MEDS: INSULIN ASPART [NOVOLOG] 3 ML PEN SC SCH ×4 (08:00→20:39)
[2019-01-18] MEDS: SENNA TAB PO SCH ×2 (08:27→20:39)
[2019-01-18] MEDS: AMLODIPINE 5 MG TAB PO SCH (08:27)
[2019-01-18] MEDS: FERROUS SULFATE (EC) 325 MG TAB PO SCH (08:27)
[2019-01-18] MEDS: ENOXAPARIN 30 MG/0.3 ML SYG SC SCH (08:29)
--- NOTE | 2019-01-18 11:41 | CONS ---
Consult Date/Type/Reason Admit Date/Time Jan 13, 2019 at 12:27 Initial Consult Date 01/13/19 Type of Consultation: Urology Reason for Consultation Urinary retention and neurogenic bladder Requesting Provider: DREA OSBORNE MD Date/Time of Note DATE: 01/18/19 TIME: 11:38 Subjective Patient is awake and alert and comfortable. Her daughter is at her bedside. Objective Vitals Vital Signs Date Temp Pulse Resp B/P (MAP) Pulse Ox O2 O2 Flow FiO2 Time Delivery Rate 01/18/19 98.3 74 18 122/57 96 07:35 (78) Intake and Output 01/17/19 01/17/19 01/18/19 1515:00 23:00 07:00 IntakeIntake Total 900 ml 490 ml OutputOutput Total 400 ml 300 ml 750 ml BalanceBalance 500 ml 190 ml -750 ml Exam Abdomen is soft. There is no tenderness. She can move her lower extremities a little bit. Results/Medications Result Diagram: 01/18/19 0426 01/18/19 0426 Results 24 hrs Laboratory Tests Test 01/17/19 12:35 01/17/19 17:26 01/17/19 21:18 01/18/19 04:26 Bedside Glucose 144 144 138 White Blood Count 4.5 L Red Blood Count 2.61 L Hemoglobin 8.6 L Hematocrit 24.3 L Mean Corpuscular Volume 93.1 Mean Corpuscular 33.0 Hemoglobin Mean Corpuscular 35.4 Hemoglobin Concent Red Cell Distribution 13.7 Width Platelet Count 264 Mean Platelet Volume 9.5 Immature Granulocytes % 0.200 Neutrophils % 56.3 Lymphocytes % 29.8 Monocytes % 7.3 Eosinophils % 6.2 Basophils % 0.2 Nucleated Red Blood 0.0 Cells % Immature Granulocytes # 0.010 Neutrophils # 2.5 Lymphocytes # 1.3 Monocytes # 0.3 Eosinophils # 0.3 Basophils # 0.0 Nucleated Red Blood 0.0 Cells # Sodium Level 135 Potassium Level 3.6 Chloride Level 105 Carbon Dioxide Level 21 Anion Gap 9 Blood Urea Nitrogen 10 Creatinine 0.58 Est Glomerular Filtrat Rate mL/min Glucose Level 104 Calcium Level 8.8 Phosphorus Level 3.9 Magnesium Level 2.0 Test 01/18/19 07:55 Bedside Glucose 131 Home Meds Reported Medications Calcium Carbonate/Vitamin D3 (OYSTERCAL-D 500 MG-400 UNIT TB) 1 Each Tablet, 1 EACH PO BID, TAB 01/13/19 Hydrocortisone (PROCTOSOL-HC) 28.35 Gm Cream..g., 28.35 GM RC PRN PRN for HEMORRHOID/EPISIOTMY PAIN 01/13/19 Docusate Sodium* (Dok*) 100 Mg Tablet, 100 MG PO DAILY, #30 CAP 01/13/19 Meloxicam* (Mobic*) 15 Mg Tablet, 15 MG PO DAILY, #30 TAB 01/13/19 Sodium Chloride* (Sodium Chloride*) 1 Gm Tablet, 1 GM PO DAILY, TAB 01/13/19 Hydrocodone/Acetaminophen ([place] 5-325 Tablet) 1 Each Tablet, 1 EACH PO BID PRN for PAIN, TAB 01/13/19 Alendronate Sodium* (Fosamax*) 70 Mg Tablet, 70 MG PO EVERY MONDAY, #4 TAB 01/13/19 Linagliptin-Metformin (Jentadueto) 2.5-500 Mg Tablet, 1 TAB PO BID, TAB 01/13/19 Amlodipine Besylate* (Norvasc*) 5 Mg Tablet, 5 MG PO DAILY, TAB 01/13/19 Pioglitazone Hcl* (Actos*) 45 Mg Tablet, 45 MG PO DAILY, #30 TAB 01/13/19 Ferrous Sulfate* (Ferrous Sulfate*) 325 Mg Tabec, 325 MG PO DAILY, TAB 01/13/19 Triamterene/Hctz* (Maxzide (37.5-25)*) 1 Each Tablet, 1 EACH PO DAILY, #30 TAB 01/13/19 Turmeric Root Extract (Turmeric) 500 Mg Capsule, 500 MG PO DAILY, CAP 01/13/19 Discontinued Reported Medications Calcium Carbonate/Vitamin D3 (Oyster Shell Calcium +D Tablet) 1 Each Tablet, 1 EACH PO BID, TAB 01/13/19 Medications Current Medications IV Flush (NS 3 ml) 3 ml PER PROTOCOL IV ; Start 01/13/19 at 13:30 Ondansetron HCl (Zofran Inj) 4 mg Q6H PRN IV NAUSEA/VOMITING; Start 01/13/19 at 13:30 Acetaminophen (Tylenol Tab) 650 mg Q6H PRN PO .PAIN 1-3 OR TEMP; Start 01/13/19 at 13:30 Acetaminophen/ Hydrocodone Bitart ([place] (5/325)) 1 tab Q6H PRN PO .MOD PAIN 4- 6; Start 01/13/19 at 13:30 Amlodipine Besylate (Norvasc) 5 mg DAILY PO Last administered on 01/18/19at 08:2 7; Admin Dose 5 MG; Start 01/14/19 at 09:00 Ferrous Sulfate (Ferrous Sulfate (Ec)) 325 mg DAILY PO Last administered on 01/18/19at 08:27; Admin Dose 325 MG; Start 01/14/19 at 09:00 Miscellaneous Information 1 ea NOTE XX ; Start 01/13/19 at 14:30 Glucose (Glutose) 15 gm Q15M PRN PO DECREASED GLUCOSE; Start 01/13/19 at 14:30 Glucose (Glutose) 22.5 gm Q15M PRN PO DECREASED GLUCOSE; Start 01/13/19 at 1 4:30 Dextrose (D50w Syringe) 25 ml Q15M PRN IV DECREASED GLUCOSE; Start 01/13/19 at 14:30 Dextrose (D50w Syringe) 50 ml Q15M PRN IV DECREASED GLUCOSE; Start 01/13/19 at 14:30 Glucagon (Glucagen) 1 mg Q15M PRN IM DECREASED GLUCOSE; Start 01/13/19 at 14:30 Glucose (Glutose) 15 gm Q15M PRN BUCCAL DECREASED GLUCOSE; Start 01/13/19 at 14:30 Enoxaparin Sodium (Lovenox) 30 mg DAILY SC Last administered on 01/18/19at 08:29; Admin Dose 30 MG; Start 01/15/19 at 09:00 Insulin Aspart (Novolog Insulin Pen) NOVOLOG *MILD* ALGORITHM WITH MEALS BEDTIME SC Last administered on 01/17/19at 17:28; Admin Dose 1 UNIT; Start 01/15/19 at 08:00 Senna (Senokot) 2 tab BID PO Last administered on 01/18/19at 08:27; Admin Dose 2 TAB; Start 01/15/19 at 09:00 Magnesium Hydroxide (Milk Of Mag) 30 ml BID PRN PO CONSTIPATION; Start 01/15/19 at 06:30 Levofloxacin (Levaquin) 500 mg DAILY@06 PO Last administered on 01/18/19at 06:14; Admin Dose 500 MG; Start 01/15/19 at 09:00 Assessment/Plan Hospital Course (Demo Recall) 83-year-old female presented to the emergency room with a history of weakness in both lower extremities and the patient was getting confused at home the past 2 days. Patient lives at home with her daughter and has been recently seeing her medical doctor for back pain and she was told that she does have osteoporosis and lumbar fracture which according to her daughter has been healing. However the patient was having more weakness in her lower extremities and also having more back pain and urinary incontinence. She has been wearing a diaper and according to her daughters when she is nervous she tries to hold her urine. Upon admission the patient underwent a CT scan of the abdomen and pelvis and that showed: No evidence of urolithiasis, diverticulitis or appendicitis. Mild to moderate left hydroureter nephrosis with transition in the upper pelvis. No stones seen. Question ureteral stricture versus reflux. Distended urinary bladder. Cholelithiasis. Vascular calcifications. Acute to subacute compression fractures L1 and L4 with retropulsion and compromise of the vertebral canal as above. Patient also had an MRI of the lumbar and thoracic spine and these did show: MRI of the lumbosacral spine: 1. The L1 compression fracture shows a signal pattern suggesting acute pathology with bone retropulsion causing severe central canal stenosis and impingement upo n the proximal cauda equina at the junction with the conus, findings likely correlate with the provided clinical history. 2. The L4 compression deformity is chronic in signal pattern with mild bone r etropulsion causing moderate central canal stenosis at the level of the superior endplate. 3. Severe acquired central canal stenosis at L4-5 caused by osteophyte and disc complex, facet arthropathy and ligamentum flavum hypertrophy. 4. Mild L5-S1 central canal stenosis caused by osteophyte and disc complex, facet arthropathy and ligamentum flavum hypertrophy. MRI of the thoracic spine: 1. The thoracic spinal cord signal is within normal limits and there is no significant central canal stenosis at any thoracic level. 2. There is degenerative disc narrowing with osteophyte and disc complexes at multiple thoracic levels as discussed above without significant central canal or foraminal compromise, no cord compression at the thoracic levels is present Patient does have urinary retention secondary to her back problems. She is not able to urinate on her own and has been placed on intermittent catheterization. HER-2 daughters are learning how to do the straight cath for her and they have made good progress. From the nurses notes the patient's daughter did the last in and out cath. Continue the same management. Upon discharge the patient should have home health nurse to visit her and also the necessary supplies for her daughters to do the in and out cath for her. KI VELÁSQUEZ MD Jan 18, 2019 11:41
[2019-01-18 14:04] VITALS: BP 129/70; PULSE 80; RESP 18
--- NOTE | 2019-01-18 14:29 | PN ---
Date/Time of Note Date/Time of Note DATE: 01/18/19 TIME: 14:26 Assessment/Plan VTE Prophylaxis Risk score (from Ns)>0 risk: 4 SCD applied (from Ns): No SCD contraindicated: other Pharmacological prophylaxis: LMWH Lines/Catheters IV C[facility]ter [facility]from [facility] [place] Urinary Cath still in place: No Assessment/Plan Hospital Course SUBJECTIVE: Patient still getting straight cath every 6 hours, seen by urology team earlier today. No acute events overnight. OBJECTIVE: Physical Exam General: lying in bed in no apparent distress. HEENT: Normocephalic, atraumatic. Eyes: Anicteric sclerae, conjunctivae clear. ENT: Nasal septum midline, oral mucosa is dry. Neck supple. Respiratory: Some diminished breath sounds. No use of accessory muscles of respiration. No adventitious breath sounds. Cardiovascular: S1, S2 heard. Regular rate and rhythm. Abdomen: Soft, nontender, and nondistended. Bowel sounds positive in all 4 quadrants. Genitourinary: Deferred. Extremities: No cyanosis, no clubbing, no edema. Peripheral pulses palpable. Neurologic: The patient is awake and alert. B/L LE weak when compared to the upper extremities. ASSESSMENT & PLAN: 83-year-old female with comorbidities including hypertension, diabetes mellitus type 2, stroke, lumbar vertebral fracture, and left breast cancer who presented to the emergency room with chief complaint of bilateral lower extremity weakness and new onset confusion with evidence of underlying complicated urinary tract infection, who will be admitted to inpatient setting for further treatment and evaluation. 1. Complicated urinary tract infection.- Urine culture showing Morganella morganii. - Continue antimicrobials according to sensitivities. 2. Urinary retention with atonic bladder.-Etiology could be secondary to underlying spinal problem. Being followed by urology. Status post Mena catheter placement on 01/13/2019, then status post Mena discontinuation. - For now continue bladder scan as advised by urology and straight cath as needed. 4. L1, L4 compression fracture with severe acquired central canal stenosis at L4-L5 and mild L5-S1 central canal stenosis, with subsequent worsening lower extremity paraparesis over the last couple of months. - Continue pain control. - Being followed by neurosurgery-Per discussion with family 2 days ago, they decided against neurosurgical intervention. Per neurosurgery team, not having the surgery (although it would be a very complicated surgery) could lead to paraplegia. Recommend to continue the brace in the meantime. 5. Hypertension. -Continue antihypertensives. 6. Diabetes mellitus type 2 - Hemoglobin A1C 5.2. -Continue the patient on sliding scale insulin. 7. Normocytic, normochromic anemia. - mContinue iron supplements. 8. Fluids, electrolytes, and nutrition. - Carbohydrate controlled diet. 9. DVT prophylaxis. 10. Plan. Continue antimicrobials Patient has significant urinary retention, as mentioned above, and now getting straight caths per urology recommendations Plan is teach the patient's daughter on periodic catheterization. Dispo: Likely home in 24 hours with catheter supplies until they can be delivered by the insurance company on Monday. Patient will need to go home with pain medications and antibiotic as well. Result Diagram: 01/18/19 0426 01/18/19 0426 Results 24hrs Laboratory Tests Test 01/17/19 17:26 01/17/19 21:18 01/18/19 04:26 01/18/19 07:55 Bedside Glucose 144 138 131 White Blood Count 4.5 L Red Blood Count 2.61 L Hemoglobin 8.6 L Hematocrit 24.3 L Mean Corpuscular Volume 93.1 Mean Corpuscular 33.0 Hemoglobin Mean Corpuscular 35.4 Hemoglobin Concent Red Cell Distribution 13.7 Width Platelet Count 264 Mean Platelet Volume 9.5 Immature Granulocytes % 0.200 Neutrophils % 56.3 Lymphocytes % 29.8 Monocytes % 7.3 Eosinophils % 6.2 Basophils % 0.2 Nucleated Red Blood 0.0 Cells % Immature Granulocytes # 0.010 Neutrophils # 2.5 Lymphocytes # 1.3 Monocytes # 0.3 Eosinophils # 0.3 Basophils # 0.0 Nucleated Red Blood 0.0 Cells # Sodium Level 135 Potassium Level 3.6 Chloride Level 105 Carbon Dioxide Level 21 Anion Gap 9 Blood Urea Nitrogen 10 Creatinine 0.58 Est Glomerular Filtrat Rate mL/min Glucose Level 104 Calcium Level 8.8 Phosphorus Level 3.9 Magnesium Level 2.0 Test 01/18/19 12:07 Bedside Glucose 143 Exam/Review of Systems Exam Vitals Vital Signs Date Temp Pulse Resp B/P (MAP) Pulse Ox O2 O2 Flow FiO2 Time Delivery Rate 01/18/19 98.8 80 18 129/70 99 14:04 (89) Intake and Output 01/17/19 01/17/19 01/18/19 1515:00 23:00 07:00 IntakeIntake Total 900 ml 490 ml OutputOutput Total 400 ml 300 ml 750 ml BalanceBalance 500 ml 190 ml -750 ml Results Results 24hrs Laboratory Tests Test 01/17/19 17:26 01/17/19 21:18 01/18/19 04:26 01/18/19 07:55 Bedside Glucose 144 138 131 White Blood Count 4.5 L Red Blood Count 2.61 L Hemoglobin 8.6 L Hematocrit 24.3 L Mean Corpuscular Volume 93.1 Mean Corpuscular 33.0 Hemoglobin Mean Corpuscular 35.4 Hemoglobin Concent Red Cell Distribution 13.7 Width Platelet Count 264 Mean Platelet Volume 9.5 Immature Granulocytes % 0.200 Neutrophils % 56.3 Lymphocytes % 29.8 Monocytes % 7.3 Eosinophils % 6.2 Basophils % 0.2 Nucleated Red Blood 0.0 Cells % Immature Granulocytes # 0.010 Neutrophils # 2.5 Lymphocytes # 1.3 Monocytes # 0.3 Eosinophils # 0.3 Basophils # 0.0 Nucleated Red Blood 0.0 Cells # Sodium Level 135 Potassium Level 3.6 Chloride Level 105 Carbon Dioxide Level 21 Anion Gap 9 Blood Urea Nitrogen 10 Creatinine 0.58 Est Glomerular Filtrat Rate mL/min Glucose Level 104 Calcium Level 8.8 Phosphorus Level 3.9 Magnesium Level 2.0 Test 01/18/19 12:07 Bedside Glucose 143 Medications Medication Current Medications IV Flush (NS 3 ml) 3 ml PER PROTOCOL IV ; Start 01/13/19 at 13:30 Ondansetron HCl (Zofran Inj) 4 mg Q6H PRN IV NAUSEA/VOMITING; Start 01/13/19 at 13:30 Acetaminophen (Tylenol Tab) 650 mg Q6H PRN PO .PAIN 1-3 OR TEMP; Start 01/13/19 at 13:30 Acetaminophen/ Hydrocodone Bitart ([place] (5/325)) 1 tab Q6H PRN PO .MOD PAIN 4- 6; Start 01/13/19 at 13:30 Amlodipine Besylate (Norvasc) 5 mg DAILY PO Last administered on 01/18/19at 08:27; Admin Dose 5 MG; Start 01/14/19 at 09:00 Ferrous Sulfate (Ferrous Sulfate (Ec)) 325 mg DAILY PO Last administered on 01/18/19at 08:27; Admin Dose 325 MG; Start 01/14/19 at 09:00 Miscellaneous Information 1 ea NOTE XX ; Start 01/13/19 at 14:30 Glucose (Glutose) 15 gm Q15M PRN PO DECREASED GLUCOSE; Start 01/13/19 at 14:30 Glucose (Glutose) 22.5 gm Q15M PRN PO DECREASED GLUCOSE; Start 01/13/19 at 14:30 Dextrose (D50w Syringe) 25 ml Q15M PRN IV DECREASED GLUCOSE; Start 01/13/19 at 14:30 Dextrose (D50w Syringe) 50 ml Q15M PRN IV DECREASED GLUCOSE; Start 01/13/19 at 14:30 Glucagon (Glucagen) 1 mg Q15M PRN IM DECREASED GLUCOSE; Start 01/13/19 at 14:30 Glucose (Glutose) 15 gm Q15M PRN BUCCAL DECREASED GLUCOSE; Start 01/13/19 at 14:30 Enoxaparin Sodium (Lovenox) 30 mg DAILY SC Last administered on 01/18/19at 08:29; Admin Dose 30 MG; Start 01/15/19 at 09:00 Insulin Aspart (Novolog Insulin Pen) NOVOLOG *MILD* ALGORITHM WITH MEALS BEDTIME SC Last administered on 01/18/19at 12:09; Admin Dose 1 UNIT; Start 01/15/19 at 08:00 Senna (Senokot) 2 tab BID PO Last administered on 01/18/19at 08:27; Admin Dose 2 TAB; Start 01/15/19 at 09:00 Magnesium Hydroxide (Milk Of Mag) 30 ml BID PRN PO CONSTIPATION; Start 01/15/19 at 06:30 Levofloxacin (Levaquin) 500 mg DAILY@06 PO Last administered on 01/18/19at 06:14; Admin Dose 500 MG; Start 01/15/19 at 09:00 GABY MORA Jan 18, 2019 14:29
[2019-01-18 19:41] VITALS: BP 98/54; PULSE 81; RESP 18
[2019-01-19] MEDS: LEVOFLOXACIN 500 MG TAB PO SCH (06:34)
[2019-01-19 07:45] VITALS: BP 135/58; PULSE 77; RESP 20
[2019-01-19] MEDS: INSULIN ASPART [NOVOLOG] 3 ML PEN SC SCH ×3 (08:00→18:00)
[2019-01-19] MEDS: SENNA TAB PO SCH (09:26)
[2019-01-19] MEDS: FERROUS SULFATE (EC) 325 MG TAB PO SCH (09:26)
[2019-01-19] MEDS: AMLODIPINE 5 MG TAB PO SCH (09:27)
[2019-01-19] MEDS: ENOXAPARIN 30 MG/0.3 ML SYG SC SCH (09:29)
--- NOTE | 2019-01-19 10:40 | CONS ---
Consult Date/Type/Reason Admit Date/Time Jan 13, 2019 at 12:27 Initial Consult Date 01/13/19 Type of Consultation: Urology Reason for Consultation Urinary retention, neurogenic bladder Requesting Provider: DREA OSBORNE MD Date/Time of Note DATE: 01/19/19 TIME: 10:37 Subjective Patient is feeling better. Her daughter is at her bedside. The daughter did do the straight cath for her this morning without problems. Objective Vitals Vital Signs Date Temp Pulse Resp B/P (MAP) Pulse Ox O2 O2 Flow FiO2 Time Delivery Rate 01/19/19 98.4 77 20 135/58 97 07:45 (83) Intake and Output 01/18/19 01/18/19 01/19/19 1515:00 23:00 07:00 IntakeIntake Total 960 ml 360 ml BalanceBalance 960 ml 360 ml Exam In and out cath at 6 AM this morning yielded 800 mL. Results/Medications Result Diagram: 01/19/19 0515 01/19/19 0515 Results 24 hrs Laboratory Tests Test 01/18/19 12:07 01/18/19 17:44 01/18/19 20:37 01/19/19 05:15 Bedside Glucose 143 135 158 White Blood Count 4.6 L Red Blood Count 2.71 L Hemoglobin 8.7 L Hematocrit 25.1 L Mean Corpuscular Volume 92.6 Mean Corpuscular 32.1 Hemoglobin Mean Corpuscular 34.7 Hemoglobin Concent Red Cell Distribution 13.8 Width Platelet Count 275 Mean Platelet Volume 9.5 Immature Granulocytes % 0.200 Neutrophils % 53.8 Lymphocytes % 33.0 Monocytes % 8.6 Eosinophils % 4.2 Basophils % 0.2 Nucleated Red Blood 0.0 Cells % Immature Granulocytes # 0.010 Neutrophils # 2.5 Lymphocytes # 1.5 Monocytes # 0.4 Eosinophils # 0.2 Basophils # 0.0 Nucleated Red Blood 0.0 Cells # Sodium Level 136 Potassium Level 3.9 Chloride Level 108 Carbon Dioxide Level 21 Anion Gap 7 Blood Urea Nitrogen 9 Creatinine 0.52 Est Glomerular Filtrat Rate mL/min Glucose Level 97 Calcium Level 9.0 Test 01/19/19 08:02 Bedside Glucose 109 Home Meds Reported Medications Calcium Carbonate/Vitamin D3 (OYSTERCAL-D 500 MG-400 UNIT TB) 1 Each Tablet, 1 EACH PO BID, TAB 01/13/19 Hydrocortisone (PROCTOSOL-HC) 28.35 Gm Cream..g., 28.35 GM RC PRN PRN for HEMORRHOID/EPISIOTMY PAIN 01/13/19 Docusate Sodium* (Dok*) 100 Mg Tablet, 100 MG PO DAILY, #30 CAP 01/13/19 Meloxicam* (Mobic*) 15 Mg Tablet, 15 MG PO DAILY, #30 TAB 01/13/19 Sodium Chloride* (Sodium Chloride*) 1 Gm Tablet, 1 GM PO DAILY, TAB 01/13/19 Hydrocodone/Acetaminophen (Colden 5-325 Tablet) 1 Each Tablet, 1 EACH PO BID PRN for PAIN, TAB 01/13/19 Alendronate Sodium* (Fosamax*) 70 Mg Tablet, 70 MG PO EVERY MONDAY, #4 TAB 01/13/19 Linagliptin-Metformin (Jentadueto) 2.5-500 Mg Tablet, 1 TAB PO BID, TAB 01/13/19 Amlodipine Besylate* (Norvasc*) 5 Mg Tablet, 5 MG PO DAILY, TAB 01/13/19 Pioglitazone Hcl* (Actos*) 45 Mg Tablet, 45 MG PO DAILY, #30 TAB 01/13/19 Ferrous Sulfate* (Ferrous Sulfate*) 325 Mg Tabec, 325 MG PO DAILY, TAB 01/13/19 Triamterene/Hctz* (Maxzide (37.5-25)*) 1 Each Tablet, 1 EACH PO DAILY, #30 TAB 01/13/19 Turmeric Root Extract (Turmeric) 500 Mg Capsule, 500 MG PO DAILY, CAP 01/13/19 Discontinued Reported Medications Calcium Carbonate/Vitamin D3 (Oyster Shell Calcium +D Tablet) 1 Each Tablet, 1 EACH PO BID, TAB 01/13/19 Medications Current Medications IV Flush (NS 3 ml) 3 ml PER PROTOCOL IV ; Start 01/13/19 at 13:30 Ondansetron HCl (Zofran Inj) 4 mg Q6H PRN IV NAUSEA/VOMITING; Start 01/13/19 at 13:30 Acetaminophen (Tylenol Tab) 650 mg Q6H PRN PO .PAIN 1-3 OR TEMP; Start 01/13/19 at 13:30 Acetaminophen/ Hydrocodone Bitart (Colden (5/325)) 1 tab Q6H PRN PO .MOD PAIN 4- 6; Start 01/13/19 at 13:30 Amlodipine Besylate (Norvasc) 5 mg DAILY PO Last administered on 01/19/19at 09:27; Admin Dose 5 MG; Start 01/14/19 at 09:00 Ferrous Sulfate (Ferrous Sulfate (Ec)) 325 mg DAILY PO Last administered on 01/19/19at 09:26; Admin Dose 325 MG; Start 01/14/19 at 09:00 Miscellaneous Information 1 ea NOTE XX ; Start 01/13/19 at 14:30 Glucose (Glutose) 15 gm Q15M PRN PO DECREASED GLUCOSE; Start 01/13/19 at 14:30 Glucose (Glutose) 22.5 gm Q15M PRN PO DECREASED GLUCOSE; Start 01/13/19 at 14:30 Dextrose (D50w Syringe) 25 ml Q15M PRN IV DECREASED GLUCOSE; Start 01/13/19 at 14:30 Dextrose (D50w Syringe) 50 ml Q15M PRN IV DECREASED GLUCOSE; Start 01/13/19 at 14:30 Glucagon (Glucagen) 1 mg Q15M PRN IM DECREASED GLUCOSE; Start 01/13/19 at 14:30 Glucose (Glutose) 15 gm Q15M PRN BUCCAL DECREASED GLUCOSE; Start 01/13/19 at 14:30 Enoxaparin Sodium (Lovenox) 30 mg DAILY SC Last administered on 01/19/19at 09:29; Admin Dose 30 MG; Start 01/15/19 at 09:00 Insulin Aspart (Novolog Insulin Pen) NOVOLOG *MILD* ALGORITHM WITH MEALS BEDTIME SC Last administered on 01/18/19at 12:09; Admin Dose 1 UNIT; Start 01/15/19 at 08:00 Senna (Senokot) 2 tab BID PO Last administered on 01/19/19at 09:26; Admin Dose 2 TAB; Start 01/15/19 at 09:00 Magnesium Hydroxide (Milk Of Mag) 30 ml BID PRN PO CONSTIPATION; Start 01/15/19 at 06:30 Levofloxacin (Levaquin) 500 mg DAILY@06 PO Last administered on 01/19/19at 06:34; Admin Dose 500 MG; Start 01/15/19 at 09:00 Assessment/Plan Hospital Course (Demo Recall) 83-year-old female presented to the emergency room with a history of weakness in both lower extremities and the patient was getting confused at home the past 2 days. Patient lives at home with her daughter and has been recently seeing her medical doctor for back pain and she was told that she does have osteoporosis and lumbar fracture which according to her daughter has been healing. However the patient was having more weakness in her lower extremities and also having more back pain and urinary incontinence. She has been wearing a diaper and ac cording to her daughters when she is nervous she tries to hold her urine. Upon admission the patient underwent a CT scan of the abdomen and pelvis and that showed: No evidence of urolithiasis, diverticulitis or appendicitis. Mild to moderate left hydroureter nephrosis with transition in the upper pelvis. No stones seen. Question ureteral stricture versus reflux. Distended urinary bladder. Cholelithiasis. Vascular calcifications. Acute to subacute compression fractures L1 and L4 with retropulsion and compromise of the vertebral canal as above. Patient also had an MRI of the lumbar and thoracic spine and these did show: MRI of the lumbosacral spine: 1. The L1 compression fracture shows a signal pattern suggesting acute pathology with bone retropulsion causing severe central canal stenosis and impingement upon the proximal cauda equina at the junction with the conus, findings likely correlate with the provided clinical history. 2. The L4 compression deformity is chronic in signal pattern with mild bone retropulsion causing moderate central canal stenosis at the level of the superior endplate. 3. Severe acquired central canal stenosis at L4-5 caused by osteophyte and disc complex, facet arthropathy and ligamentum flavum hypertrophy. 4. Mild L5-S1 central canal stenosis caused by osteophyte and disc complex, facet arthropathy and ligamentum flavum hypertrophy. MRI of the thoracic spine: 1. The thoracic spinal cord signal is within normal limits and there is no significant central canal stenosis at any thoracic level. 2. There is degenerative disc narrowing with osteophyte and disc complexes at multiple thoracic levels as discussed above without significant central canal or foraminal compromise, no cord compression at the thoracic levels is present Patient does have urinary retention secondary to her back problems. She is not able to urinate on her own and has been placed on intermittent catheterization. Her daughter did straight catheter her this morning at 6 AM and had 800 mL of clear urine. The patient is feeling better and the daughter seemed to have learned to do the in and out cath and she will continue doing it at home after discharge The urine culture did grow Morganella morganii and it is sensitive to Levaquin which the patient is on. KI VELÁSQUEZ MD Jan 19, 2019 10:40
[2019-01-19 13:26] VITALS: BP 114/57; PULSE 77; RESP 19
--- NOTE | 2019-01-19 13:39 | PDOCDIS ---
Discharge Instructions CONDITION [id number] Patient Condition: [id number] Stable HOME CARE INSTRUCTIONS: [id number] Diet Instructions: [id number] Modified Fat ACTIVITY: [id number] Activity Restrictions: [id number] Slowly Increase Activity Rest between Activity Avoid heavy lifting FOLLOW UP/APPOINTMENTS Follow-up Plan Please take your medication as prescribed, follow-up with your doctors in the clinic in the next 1 to 2 weeks. GABY MORA Jan 19, 2019 13:39
[2019-01-19] MEDS ORDERED: LEVO500T48 PO (13:48)
[2019-01-19] MEDS ORDERED: MAXZ25 PO (13:48)
[2019-01-19] MEDS ORDERED: FER325 PO (13:48)
[2019-01-19] MEDS ORDERED: SODI1TAB2 PO (13:48)
[2019-01-19] MEDS ORDERED: LINA1TAB PO (13:48)
[2019-01-19] MEDS ORDERED: PIOG45TA9 PO (13:48)
[2019-01-19] MEDS ORDERED: AMLO5TAB4 PO (13:48)
[2019-01-19] MEDS ORDERED: CALC-634 PO (13:48)
[2019-01-19] MEDS ORDERED: HYDR-4011 PO (13:48)
--- NOTE | 2019-01-19 14:02 | DS ---
Date/Time of Note Date/Time of Note DATE: 01/19/19 TIME: 13:52 Discharge Summary Admission/Discharge Info Admit Date/Time Jan 13, 2019 at 12:27 Discharge Date/Time Discharge Diagnosis 1. Complicated urinary tract infection.- Urine culture showing Morganella mor ganii-improving with antibiotics 2. Urinary retention with atonic bladder.-Etiology secondary to underlying spinal problem. Being followed by urology, getting successful straight catheterizations performed 4 times a day now. 4. L1, L4 compression fracture with severe acquired central canal stenosis at L4-L5 and mild L5-S1 central canal stenosis, with subsequent worsening lower e xtremity paraparesis over the last couple of month- Being followed by neurosurgery-Per discussion with family 2 days ago, they decided against neurosurgical intervention. Per neurosurgery team, not having the surgery (although it would be a very complicated surgery) could lead to paraplegia. Recommend to continue the brace in the meantime. 5. Hypertension. 6. Diabetes mellitus type 2 - Hemoglobin A1C 5.2. 7. Normocytic, normochromic anemia. Patient Condition: Stable Procedures MRI of the lumbosacral spine: 1. The L1 compression fracture shows a signal pattern suggesting acute pathology with bone retropulsion causing severe central canal stenosis and impingement upon the proximal cauda equina at the junction with the conus, findings likely correlate with the provided clinical history. 2. The L4 compression deformity is chronic in signal pattern with mild bone retropulsion causing moderate central canal stenosis at the level of the superior endplate. 3. Severe acquired central canal stenosis at L4-5 caused by osteophyte and disc complex, facet arthropathy and ligamentum flavum hypertrophy. 4. Mild L5-S1 central canal stenosis caused by osteophyte and disc complex, facet arthropathy and ligamentum flavum hypertrophy. MRI of the thoracic spine: 1. The thoracic spinal cord signal is within normal limits and there is no significant central canal stenosis at any thoracic level. 2. There is degenerative disc narrowing with osteophyte and disc complexes at multiple thoracic levels as discussed above without significant central canal or foraminal compromise, no cord compression at the thoracic levels is present Hx of Present Illness 83-year-old female with a past medical history of hypertension, diabetes mellitus type 2, stroke, lumbar vertebral fracture, and left breast cancer status post resection, chemotherapy, and radiation. Patient stays at home with her daughter and is relatively independent. Since 01/12/2019, the patient started getting confused. The patient had new onset bilateral lower extremity weakness. She also had inability to hold her urine. The patient's daughter reported a fever and the patient received 1 dose of Tylenol at home. The patient started complaining of back pain and bilateral flank pain. The patient also had a few episodes of nonbilious, nonbloody vomiting. Therefore, the family brought the patient to the emergency room. In the ER, the patient was noticed to have positive urinalysis with positive nitrate and positive leukocyte esterase with urine microscopic WBC of 145. The patient underwent a CT scan of the abdomen and pelvis that was showing mild to moderate left hydroureteronephrosis with a transition in upper pelvis with a distended urinary bladder. The patient was afebrile. The patient was treated with IV fluids and IV ciprofloxacin in the ER. Hospital Course Thus patient was admitted with findings of bilateral lower extremity weakness and new onset confusion with evidence of underlying complicated urinary tract infection. Patient was placed on appropriate antibiotics for that and the urine cultures grew out Morganella species. Patient was seen by urology and neurosurgery teams during his hospital stay. The MRI results were reviewed and the neurosurgery team recommended a complicated neurosurgical intervention because of the worsening lower extremity paraparesis over the last couple of months. Patient subsequently found to have urinary retention secondary to these back problems. She is not able to urinate on her own and has been placed on intermittent catheterization. Patient's daughters are learning how to do the straight cath for her and they have made good progress. From the nurses notes the patient's daughter did the last in and out cath after learning while here in the hospital. Family decided against any neurosurgical intervention at this time. Per neurosurgery team, not having the surgery (although it would be a very complicated surgery) could lead to paraplegia. They recommended to continue the brace in the meantime. After supplies have been provided to the patient and case management has set up for the supplies including straight catheterization for home use, patient will be discharged home later today in improved condition. See below for full list of discharge medications. Home Meds Active Scripts Levofloxacin* (Levaquin*) 500 Mg Tablet, 500 MG PO DAILY@06, #7 TAB Prov:MORGANRAJIGABY S. 01/19/19 Calcium Carbonate/Vitamin D3 (OYSTERCAL-D 500 MG-400 UNIT TB) 1 Each Tablet, 1 EACH PO BID, #60 TAB Prov:GABY MORA S. 01/19/19 Sodium Chloride* (Sodium Chloride*) 1 Gm Tablet, 1 GM PO DAILY, #30 TAB Prov:GABY MORA S. 01/19/19 Hydrocodone/Acetaminophen (Drake 5-325 Tablet) 1 Each Tablet, 1 EACH PO BID PRN for PAIN, #15 TAB Prov:GABY MORA S. 01/19/19 Linagliptin-Metformin (Jentadueto) 2.5-500 Mg Tablet, 1 TAB PO BID, #60 TAB Prov:GABY MORA S. 01/19/19 Amlodipine Besylate* (Norvasc*) 5 Mg Tablet, 5 MG PO DAILY, #30 TAB Prov:GABY MORA S. 01/19/19 Pioglitazone Hcl* (Actos*) 45 Mg Tablet, 45 MG PO DAILY, #30 TAB Prov:GABY MORA S. 01/19/19 Ferrous Sulfate* (Ferrous Sulfate*) 325 Mg Tabec, 325 MG PO DAILY, #30 TAB Prov:GABY MORA S. 01/19/19 Triamterene/Hctz* (Maxzide (37.5-25)*) 1 Each Tablet, 1 EACH PO DAILY, #30 TAB Prov:GABY MORA S. 01/19/19 Reported Medications Hydrocortisone (PROCTOSOL-HC) 28.35 Gm Cream..g., 28.35 GM RC PRN PRN for HEMORRHOID/EPISIOTMY PAIN 01/13/19 Docusate Sodium* (Dok*) 100 Mg Tablet, 100 MG PO DAILY, #30 CAP 01/13/19 Meloxicam* (Mobic*) 15 Mg Tablet, 15 MG PO DAILY, #30 TAB 01/13/19 Alendronate Sodium* (Fosamax*) 70 Mg Tablet, 70 MG PO EVERY MONDAY, #4 TAB 01/13/19 Turmeric Root Extract (Turmeric) 500 Mg Capsule, 500 MG PO DAILY, CAP 01/13/19 Discontinued Reported Medications Calcium Carbonate/Vitamin D3 (Oyster Shell Calcium +D Tablet) 1 Each Tablet, 1 EACH PO BID, TAB 01/13/19 Follow-up Plan Please take your medication as prescribed, follow-up with your doctors in the clinic in the next 1 to 2 weeks. Primary Care Provider Patricia Lynn MD Time spent on discharge: > 30 minutes Pending Labs Laboratory Tests Test 01/18/19 17:44 01/18/19 20:37 01/19/19 05:15 01/19/19 08:02 Bedside 135 158 109 Glucose mg/dL (70-220) mg/dL (70-220) mg/dL (70-220) White Blood 4.6 Count 10^3/ul (4.8-1 0.8) Red Blood 2.71 Count 10^6/ul (4.20- 5.40) Hemoglobin 8.7 g/dl (12.0-16. 0) Hematocrit 25.1 % (37.0-47.0) Mean 92.6 Corpuscular fl (82.0-101.0 Volume ) Mean 32.1 Corpuscular pg (29.0-33.0) Hemoglobin Mean 34.7 Corpuscular g/dl (32.0-37. Hemoglobin Conc 0) ent Red Cell 13.8 Distribution % (11.5-14.5) Width Platelet Count 275 10^3/UL (140-4 15) Mean Platelet 9.5 Volume fl (7.4-10.4) Immature 0.200 Granulocytes % % (0.001-0.429 ) Neutrophils % 53.8 % (39.0-77.0) Lymphocytes % 33.0 % (15.0-51.0) Monocytes % 8.6 % (0.0-11.0) Eosinophils % 4.2 % (0.0-7.0) Basophils % 0.2 % (0.0-2.0) Nucleated Red 0.0 Blood Cells % /100WBC (0.0-0 .0) Immature 0.010 Granulocytes # 10^3/ul (0.0-0 .031) Neutrophils # 2.5 10^3/ul (1.6-7 .5) Lymphocytes # 1.5 10^3/ul (0.8-2 .9) Monocytes # 0.4 10^3/ul (0.3-0 .9) Eosinophils # 0.2 10^3/ul (0.0-0 .5) Basophils # 0.0 10^3/ul (0.0-0 .1) Nucleated Red 0.0 Blood Cells # 10^3/ul (0.0-0 .0) Sodium Level 136 mmol/L (135-14 4) Potassium 3.9 Level mmol/L (3.5-5. 1) Chloride Level 108 mmol/L (97-110 ) Carbon Dioxide 21 Level mmol/L (21-31) Anion Gap 7 (5-13) Blood Urea 9 mg/dl (7-20) Nitrogen Creatinine 0.52 mg/dl (0.44-1. 00) Est Glomerular mL/min (>60) Filtrat Rate mL/min Glucose Level 97 mg/dl (70-220) Calcium Level 9.0 mg/dl (8.4-10. 2) Test 01/19/19 12:53 Bedside 126 Glucose mg/dL (70-220) GABY MORA Jan 19, 2019 14:02
== END 2019-01-19 19:10 | disposition home health service (06) | DRG 543 ==
LOC: E/R 09:27 → 2NE 12:27
PROVIDERS: ADMIT Internal Medicine; ATTEND Hospitalist
DX: M80.88XA Other osteoporosis with current pathological fracture, vertebra(e), initial encounter for fracture (principal); N13.6 Pyonephrosis; S32.011A Stable burst fracture of first lumbar vertebra, initial encounter for closed fracture; I10 Essential (primary) hypertension; E11.9 Type 2 diabetes mellitus without complications; D64.9 Anemia, unspecified; Z85.3 Personal history of malignant neoplasm of breast; R11.2 Nausea with vomiting, unspecified; M48.061 Spinal stenosis, lumbar region without neurogenic claudication; N31.2 Flaccid neuropathic bladder, not elsewhere classified; N39.490 Overflow incontinence; R33.8 Other retention of urine; B96.89 Other specified bacterial agents as the cause of diseases classified elsewhere
CPT/HCPCS: 36415; 70450; 71045; 72146; 72148; 74176; 80048; 80053; 80061; 81001; 82962; 83036; 83735; 84100; 84439; 84443; 84484; 85025; 85610; 85730; 87086; 93005; 96361; 96365; 97110; 97163; 97530; A4310; J0744; J1650; J1815; J2060; J7030; J7040